=== PATIENT | female | born 1950 | race Caucasian/White ===

== ENCOUNTER 2017-02-20 15:22 | Emergency (ER) | payer MEDICARE, OTHER ==
[2017-02-20 15:34] VITALS: BP 167/88
[2017-02-20] MEDS ORDERED: Ondansetron 4 MG/2 ML SDV IVPUSH ONE (16:07)
[2017-02-20] MEDS ORDERED: Sodium Chloride 0.9% 10 ML Syringe FLUSH PRN (16:07)
[2017-02-20] MEDS ORDERED: Sodium Chloride 0.9% 1,000 ML IV ONE (16:07)
[2017-02-20] MEDS ORDERED: Ketorolac 30 MG/ML SDV IVPUSH ONE (16:07)
[2017-02-20] MEDS ORDERED: diphenhydrAMINE 50 MG/ML SDV IVPUSH ONE (17:48)
[2017-02-20] MEDS ORDERED: Morphine 2 MG/ML Syringe IVPUSH ONE (18:48)
--- NOTE | 2017-02-20 19:20 | EDM.PDOC ---
ED HPI GENERAL MEDICAL PROBLEM - General Chief Complaint: Gastrointestinal Problem Stated Complaint: FLU LIKE SYMPTOMS Time Seen by Provider: 02/20/17 16:00 Source of Information: Reports: Patient History Limitations: Reports: No Limitations - History of Present Illness INITIAL COMMENTS - FREE TEXT/NARRATIVE: 66 year old female presents foe evaluation and treatment of flu like symptoms . Patient reports symptoms started last night. Reports she first started vomiting last night. She has vomited 3 times today. Reports feeling dehydrated from the vomiting. Also reports symptoms of chills, nausea, bilateral ear pain, headaches , decreased appetite and bodyaches. Denies any fevers, cough, sore throat, abdominal pain or diarrhea. Patient has a history of RA and polymyositis. Receives IV Ig therapy for these. Last treatment was last . Denies any recent travel. Denies any ill contacts. Has not yet had a flu shot this year.s Duration: Day(s): (1) Headache Pain Score (Numeric/FACES): 10 - Related Data Allergies Allergy/AdvReac Type Severity Reaction Status Date / Time cephalexin monohydrate Allergy Hives Verified 02/20/17 15:31 [From Keflex] rimantadine HCl Allergy Rash Verified 02/20/17 15:31 [From Flumadine] acetaminophen [From [place]] AdvReac Nervousness Verified 02/20/17 15:31 codeine AdvReac Nervousness Verified 02/20/17 15:31 hydrocodone bitartrate AdvReac Nervousness Verified 02/20/17 15:31 [From [place]] hydromorphone HCl AdvReac Nervousness Verified 02/20/17 15:31 [From Dilaudid] meperidine HCl [From Demerol] AdvReac Nervousness Verified 02/20/17 15:31 oxycodone AdvReac Nervousness Verified 02/20/17 15:31 propoxyphene HCl AdvReac Nervousness Verified 02/20/17 15:31 [From [place]] sulfamethoxazole AdvReac Nausea and Verified 02/20/17 15:31 [From Bactrim] Vomiting tramadol HCl [From Ultram] AdvReac Nervousness Verified 02/20/17 15:31 trimethoprim [From Bactrim] AdvReac Nausea and Verified 02/20/17 15:31 Vomiting Home Meds: Home Meds Ascorbic Acid [C-1000] 1,000 mg PO DAILY 08/01/14 [History] Cholecalciferol (Vitamin D3) [Vitamin D3] 2,000 unit PO DAILY 08/01/14 [History] Escitalopram [Lexapro] 20 mg PO DAILY 08/01/14 [History] Exemestane 25 mg PO DAILY 08/01/14 [History] Levothyroxine 25 mcg PO DAILY 08/01/14 [History] Losartan [Cozaar] 0.5 tab PO DAILY 08/01/14 [History] Multivitamin [Multi-Vitamin Daily] 1 tab PO DAILY 08/01/14 [History] Pantoprazole [ProTONIX] 40 mg PO DAILY 08/01/14 [History] SUMAtriptan Succinate [Imitrex] 50 mg PO ASDIRECTED PRN 08/01/14 [History] Folic Acid 20 mg PO DAILY 08/23/15 [History] Morphine 15 mg PO Q6H PRN #20 tablet 08/23/15 [Rx] Past Medical History Cardiovascular History: Reports: High Cholesterol, Hypertension, Other (See Below) Other Cardiovascular History: PVCs Gastrointestinal History: Reports: Other (See Below) Other Gastrointestinal History: stomach adhesions 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) Other OB/BYN History: breast cancer 2011 Musculoskeletal History: Reports: Other (See Below) Other Musculoskeletal History: right leg muscle biopsy, right toe plate, right ulnar nerve, rorator cuff, neck disectomy, 07/18/2015 lumbarsacral disk fusion Social & Family History - Tobacco Use Smoking Status *Q: Never Smoker Second Hand Smoke Exposure: No - Alcohol Use Days Per Week of Alcohol Use: 0 Number of Drinks Per Day: 0 Total Drinks Per Week: 0 - Recreational Drug Use Recreational Drug Use: No Drug Use in Last 12 Months: No ED ROS GENERAL - Review of Systems Review Of Systems: See Below Constitutional: Reports: Chills, Decreased Appetite, Other (bodyaches). Denies : Fever HEENT: Reports: Ear Pain (bilateral). Denies: Throat Pain Respiratory: Denies: Cough, Sputum GI/Abdominal: Reports: Nausea, Vomiting (x3 today). Denies: Abdominal Pain, Diarrhea : Reports: No Symptoms. Denies: Dysuria Neurological: Reports: Headache ED EXAM, GENERAL - Physical Exam Exam: See Below Exam Limited By: No Limitations General Appearance: Alert, WD/WN, No Apparent Distress Eye Exam: Bilateral Eye: Normal Inspection, PERRL Ears: Normal External Exam, Normal Canal, Hearing Grossly Normal, Normal TMs Nose: Normal Inspection Throat/Mouth: Normal Inspection, Normal Lips, Normal Voice, No Airway Compromise Neck: Normal Inspection, Full Range of Motion Respiratory/Chest: No Respiratory Distress, Lungs Clear, Normal Breath Sounds Cardiovascular: Normal Peripheral Pulses, Regular Rate, Rhythm, No Murmur GI/Abdominal: Soft, Non-Tender Neurological: Alert, Oriented, Normal Cognition Psychiatric: Normal Affect, Normal Mood Skin Exam: Warm, Dry, Normal Color Course - Vital Signs Last Recorded V/S: Last Vital Signs Temp 35.7 C 02/20/17 15:31 Pulse 80 02/20/17 15:31 Resp 17 02/20/17 15:31 BP 167/88 H 02/20/17 15:31 Pulse Ox 98 02/20/17 15:31 - Orders/Labs/Meds Labs: Laboratory Tests 02/20/17 02/20/17 02/20/17 Range/Units 16:30 16:30 16:30 WBC 4.97 (3.98-10.04) K/mm3 RBC 3.82 L (3.98-5.22) M/mm3 Hgb 14.2 (11.2-15.7) gm/L Hct 40.8 (34.1-44.9) % MCV 106.8 H (79.4-94.8) fl MCH 37.2 H (25.6-32.2) pg MCHC 34.8 (32.2-35.5) g/dl RDW Std Deviation 57.7 H (36.4-46.3) fL Plt Count 236 (182-369) K/mm3 MPV 11.0 (9.4-12.3) fl Neutrophils % (Manual) 86 H (40-60) % Band Neutrophils % 0 (0-10) % Lymphocytes % (Manual) 11 L (20-40) % Atypical Lymphs % 0 % Monocytes % (Manual) 2 (2-10) % Eosinophils % (Manual) 0 L (0.7-5.8) % Basophils % (Manual) 1 (0.1-1.2) Platelet Estimate Adequate Anisocytosis 2+ moderate Macrocytosis 2+ moderate Ovalocytes 1+ slight RBC Morph Comment Not Reportable Sodium 139 (136-145) mEq/L Potassium 3.3 L (3.5-5.1) mEq/L Chloride 100 (98-107) mEq/L Carbon Dioxide 28 (21-32) mEq/L Anion Gap 14.3 (5-15) BUN 12 (7-18) mg/dL Creatinine 1.0 (0.55-1.02) mg/dL Est Cr Clr Drug Dosing 42.32 mL/min Estimated GFR (MDRD) 56 (>60) mL/min BUN/Creatinine Ratio 12.0 L (14-18) Glucose 94 (80-115) mg/dL Calcium 9.5 (8.5-10.1) mg/dL Total Bilirubin 2.1 H (0.2-1.0) mg/dL AST 61 H (15-37) U/L ALT 49 (14-59) U/L Alkaline Phosphatase 65 (46-116) U/L C-Reactive Protein 0.5 (<1.0) mg/dL Total Protein 8.2 (6.4-8.2) g/dl Albumin 3.4 (3.4-5.0) g/dl Globulin 4.8 gm/dL Albumin/Globulin Ratio 0.7 L (1-2) Lipase 107 (73-393) U/L Meds: Medications Discontinued Medications Generic Name Dose Route Start Last Admin Trade Name Freq PRN Reason Stop Dose Admin Diphenhydramine HCl 25 mg 02/20/17 17:48 02/20/17 17:53 Benadryl IVPUSH 02/20/17 17:49 25 mg ONETIME ONE Administration Sodium Chloride 1,000 mls @ 999 mls/hr 02/20/17 16:07 02/20/17 16:24 Normal Saline IV 02/20/17 17:07 999 mls/hr ONETIME ONE Administration Ketorolac Tromethamine 30 mg 02/20/17 16:07 02/20/17 16:24 Toradol IVPUSH 02/20/17 16:08 30 mg ONETIME ONE Administration Morphine Sulfate 2 mg 02/20/17 18:48 02/20/17 18:58 Morphine IVPUSH 02/20/17 18:49 2 mg ONETIME ONE Administration Ondansetron HCl 4 mg 02/20/17 16:07 02/20/17 16:24 Zofran IVPUSH 02/20/17 16:08 4 mg ONETIME ONE Administration Sodium Chloride 10 ml 02/20/17 16:07 02/20/17 16:24 Saline Flush FLUSH 10 ml ASDIRECTED PRN Administration Keep Vein Open - Re-Assessments/Exams Free Text/Narrative Re-Assessment/Exam: 02/20/17 16:10 Plan is to give fluids, zofran and toradol for dehydration, nausea and headache. Will obtain labs. 02/20/17 17:50 Awaiting labs. Reports no change in migraine. Will give benadryl for additional relief. 02/20/17 18:45 Labs returned. Influenza is negative. WBC and CRP are within normal limits. Bilirubin is elevated. I will have her follow-up for further evaluation of this. Patient reports no change in migraine. She is requesting morphine as she reports when her migraines are this bad that is the only thing that works for her. 2mg IV morphine ordered. 02/20/17 19:20 The patient is currently sleeping at this point. I feel she has a viral infection which precipitated a migraine headache for her. I will allow her to rest a short while longer and we will reassess her. 02/20/17 19:52 Migraine has significantly improved. She feels comfortable going home. Discharge instructions as documented. Departure - Departure Time of Disposition: 19:52 Disposition: Home, Self-Care 01 Condition: Good Clinical Impression: Migraine - Discharge Information Instructions: Migraine Headache Referrals: Kelly Stapleton PA-C [Primary Care Provider] - Forms: ED Department Discharge Additional Instructions: Go home and rest in a dark quiet room. make sure you are drinking plenty of fluids. Follow up with your primary care provider for recheck of your symptoms this week. Please return to the ER if your symptoms change or worsen.
== END 2017-02-20 20:02 | disposition home or self-care (01) ==
LOC: JD.ED 15:22
DX: G43.909 Migraine, unspecified, not intractable, without status migrainosus (principal); I10 Essential (primary) hypertension; Z88.1 Allergy status to other antibiotic agents; Z88.5 Allergy status to narcotic agent; Z88.8 Allergy status to other drugs, medicaments and biological substances; Z88.2 Allergy status to sulfonamides; Z79.899 Other long term (current) drug therapy; E78.00 Pure hypercholesterolemia, unspecified
CPT/HCPCS: 36415; 80053; 83690; 85025; 86140; 87804; 96361; 96374; 96375; 99284; J1200; J1885; J2270; J2405; J7040; J7050; 99283

== ENCOUNTER 2020-09-29 17:55 | Emergency (ER) | payer MEDICARE, OTHER ==
[2020-09-29 18:52] VITALS: BP 123/71; PULSE 65
[2020-09-29] MEDS ORDERED: Nitrofurantoin Monohydrate/Macrocrystalline 100 MG Cap PO ONE (19:14)
--- NOTE | 2020-09-29 19:17 | EDM.PDOC ---
ED HPI GENERAL MEDICAL PROBLEM - General Chief Complaint: Genitourinary Problem Stated Complaint: BURNING SENSATION DURING URINATION Time Seen by Provider: 09/29/20 18:48 Source of Information: Reports: Patient, RN Notes Reviewed History Limitations: Reports: No Limitations - History of Present Illness INITIAL COMMENTS - FREE TEXT/NARRATIVE: Patient is a 70-year-old female presenting to the emergency department with complaints of suprapubic pain burning with urination, and hematuria. The symptoms began last evening. She denies any fever, chills, nausea, vomiting, or back pain. She has had UTIs in the past, however it has been quite some time. Bladder Pain Score (Numeric/FACES): 8 - Related Data Allergies Allergy/AdvReac Type Severity Reaction Status Date / Time cephalexin monohydrate Allergy Intermediate Hives Verified 10/01/20 12:07 [From Keflex] rimantadine HCl Allergy Intermediate Rash Verified 10/01/20 12:07 [From Flumadine] acetaminophen [From [place]] AdvReac Mild Nervousness Verified 10/01/20 12:07 codeine AdvReac Mild Nervousness Verified 10/01/20 12:07 hydrocodone bitartrate AdvReac Mild Nervousness Verified 10/01/20 12:07 [From [place]] hydromorphone HCl AdvReac Mild Nervousness Verified 10/01/20 12:07 [From Dilaudid] meperidine HCl [From Demerol] AdvReac Mild Nervousness Verified 10/01/20 12:07 oxycodone AdvReac Mild Nervousness Verified 10/01/20 12:07 propoxyphene HCl AdvReac Mild Nervousness Verified 10/01/20 12:07 [From [place]] sulfamethoxazole AdvReac Mild Nausea and Verified 10/01/20 12:07 [From Bactrim] Vomiting tramadol HCl [From Ultram] AdvReac Nervousness Verified 02/20/17 15:31 trimethoprim [From Bactrim] AdvReac Nausea and Verified 02/20/17 15:31 Vomiting Home Meds: Home Meds Ascorbic Acid [C-1000] 1,000 mg PO DAILY 08/01/14 [History] Cholecalciferol (Vitamin D3) [Vitamin D3] 5,000 unit PO DAILY 08/01/14 [History] Escitalopram [Lexapro] 20 mg PO DAILY 08/01/14 [History] Levothyroxine 25 mcg PO DAILY 08/01/14 [History] Losartan [Cozaar] 0.5 tab PO DAILY 08/01/14 [History] Multivitamin [Multi-Vitamin Daily] 1 tab PO DAILY 08/01/14 [History] SUMAtriptan succinate [Imitrex] 50 mg PO ASDIRECTED PRN 08/01/14 [History] Nitrofurantoin Monohyd/M-Cryst [Macrobid 100 mg Capsule] 100 mg PO BID 5 Days #10 capsule 09/29/20 [Rx] Past Medical History HEENT History: Reports: Impaired Vision Other HEENT History: wears corrective lenses Cardiovascular History: Reports: High Cholesterol, Hypertension, Other (See Below) Other Cardiovascular History: PVCs Gastrointestinal History: Reports: Other (See Below) Other Gastrointestinal History: stomach adhesions 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 Denies: Fever, Chills HEENT: Reports: No Symptoms Respiratory: Reports: No Symptoms Cardiovascular: Reports: No Symptoms Endocrine: Reports: No Symptoms GI/Abdominal: Reports: Abdominal Pain (suprapubic). Denies: Nausea, Vomiting : Reports: Dysuria, Hematuria, Urgency. Denies: Flank Pain Musculoskeletal: Reports: No Symptoms Skin: Reports: No Symptoms Neurological: Reports: No Symptoms Psychiatric: Reports: No Symptoms Hematologic/Lymphatic: Reports: No Symptoms Immunologic: Reports: No Symptoms ED EXAM, RENAL/ - Physical Exam Exam: See Below Exam Limited By: No Limitations General Appearance: Alert, WD/WN, No Apparent Distress Respiratory/Chest: No Respiratory Distress, Lungs Clear, Normal Breath Sounds, No Accessory Muscle Use, Chest Non-Tender Cardiovascular: Normal Peripheral Pulses, Regular Rate, Rhythm, No Edema, No Gallop, No JVD, No Murmur, No Rub GI/Abdominal: Normal Bowel Sounds, Soft, No Organomegaly, No Distention, No Abnormal Bruit, No Mass, Tender (mild suprapubic) Back Exam: Normal Inspection, Full Range of Motion. No: CVA Tenderness (L), CVA Tenderness (R) Neurological: Alert, Oriented, CN II-XII Intact, Normal Cognition, Normal Gait, Normal Reflexes, No Motor/Sensory Deficits Psychiatric: Normal Affect, Normal Mood Skin Exam: Warm, Dry, Intact, Normal Color, No Rash Course - Vital Signs Last Recorded V/S: Last Vital Signs Temp 98.0 F 09/29/20 18:50 Pulse 65 09/29/20 18:50 Resp 20 09/29/20 18:50 BP 123/71 09/29/20 18:50 Pulse Ox 96 09/29/20 18:50 - Orders/Labs/Meds Labs: Laboratory Tests 09/29/20 Range/Units 19:00 Urine Color Yellow (Yellow) Urine Appearance Clear (Clear) Urine pH 6.0 (5.0-8.0) Ur Specific [place] 1.020 (1.005-1.030) Urine Protein 1+ H (Negative) Urine Glucose (UA) Negative (Negative) Urine Ketones Trace H (Negative) Urine Occult Blood 3+ H (Negative) Urine Nitrite Negative (Negative) Urine Bilirubin Negative (Negative) Urine Urobilinogen 0.2 (0.2-1.0) Ur Leukocyte Esterase 1+ H (Negative) Urine RBC 40-50 H (0-5) /hpf Urine WBC 10-20 H (0-5) /hpf Ur Squamous Epith Cells 0-5 (0-5) /hpf Urine Bacteria Moderate H (FEW) /hpf Urine Mucus Few (FEW) /hpf Meds: Medications Discontinued Medications Generic Name Dose Route Start Last Admin Trade Name Freq PRN Reason Stop Dose Admin Nitrofurantoin Macrocrystals 100 mg 09/29/20 19:14 09/29/20 19:22 Nitrofurantoin Monohydrate/Macrocrystalline 100 Mg Cap PO 09/29/20 19:15 100 mg ONETIME ONE Administration - Re-Assessments/Exams Free Text/Narrative Re-Assessment/Exam: Patient is a 70-year-old female presenting to the emergency department with complaints of suprapubic pain, hematuria, and burning with urination. Symptoms began last evening. She has no fever, chills, nausea, vomiting, or back pain. Exam is unremarkable. She has no CVA tenderness. I have ordered urinalysis. 09/29/20 19:33 Urinalysis shows 1+ protein, trace ketones, 3+ occult blood, 1+ leukocyte esterase, 40-50 RBCs, 10-20 WBCs with moderate bacteria. I will start patient on Macrobid for treatment of urinary tract infection. First dose to be given tonight. Discharge instructions as documented. Departure - Departure Time of Disposition: 19:37 Disposition: Home, Self-Care 01 Condition: Good Clinical Impression: UTI, Urinary tract infectious disease - Discharge Information *PRESCRIPTION DRUG MONITORING PROGRAM REVIEWED*: No *COPY OF PRESCRIPTION DRUG MONITORING REPORT IN PATIENT BRUCE: No Prescriptions: Nitrofurantoin Monohyd/M-Cryst [Macrobid 100 mg Capsule] 100 mg PO BID 5 Days #10 capsule Instructions: Urinary Tract Infection, Adult, [id number] Referrals: Kelly Stapleton PA-C [Primary Care Provider] - Forms: ED Department Discharge Additional Instructions: You were seen in the emergency department today for burning with urination, blood in urine, and lower abdominal discomfort. Urinalysis does show they have a urinary tract infection. You have been started on Macrobid for treatment of this. Take this medication as prescribed. You may use [id number] Azo urinary relief to help treat the discomfort. Ensure that you are taking an adequate amount of fluid. Symptoms should begin to resolve over the next few days. You should experience any new or worsening symptoms, please not hesitate to return to the emergency department or follow-up in the clinic. Sepsis Event Note (ED) - Evaluation Sepsis Screening Result: No Definite Risk
== END 2020-09-29 19:51 | disposition home or self-care (01) ==
LOC: JD.ED 17:55
DX: N39.0 Urinary tract infection, site not specified (principal); I10 Essential (primary) hypertension; Z79.899 Other long term (current) drug therapy; Z88.1 Allergy status to other antibiotic agents; Z88.6 Allergy status to analgesic agent; Z88.5 Allergy status to narcotic agent; Z88.2 Allergy status to sulfonamides
CPT/HCPCS: 81001; 87086; 87088; 87186; 99283; A9270

== ENCOUNTER 2020-12-31 17:17 | Emergency (ER) | payer MEDICARE, OTHER ==
[2020-12-31] MEDS ORDERED: Phenylephrine 0.5% Nasal Spray 15 ML Bot NASBOTH ONE (17:30)
[2020-12-31 17:39] VITALS: BP 124/53; PULSE 79
--- NOTE | 2020-12-31 17:42 | EDM.PDOC ---
ED HPI GENERAL MEDICAL PROBLEM - General Chief Complaint: ENT Problem Stated Complaint: NOSE BLEED Time Seen by Provider: 12/31/20 17:30 Source of Information: Reports: Patient, RN Notes Reviewed History Limitations: Reports: No Limitations - History of Present Illness INITIAL COMMENTS - FREE TEXT/NARRATIVE: Patient is a 70-year-old female who presents to the ER for evaluation of a right nosebleed. Patient notes that she has had history of 3 nosebleeds this week, which is a new variant for her. She states that this nosebleed today however started roughly 30 minutes ago, and seems to be coming out of the right nostril. She notes that the other nosebleeds this week also have been coming out of her right nostril. States that today she is having issue with a migraine headache that is associated with a nosebleed. Patient denies being on any sort of blood thinners. Patient denies any other sick-like symptoms, fever/chills, cough/shortness of breath, nausea/vomiting/diarrhea. Primary care provider is Jennifer Stapleton from [facility]. Headache Pain Score (Numeric/FACES): 8 - Related Data Allergies Allergy/AdvReac Type Severity Reaction Status Date / Time cephalexin monohydrate Allergy Intermediate Hives Verified 10/01/20 12:07 [From Keflex] rimantadine HCl Allergy Intermediate Rash Verified 10/01/20 12:07 [From Flumadine] acetaminophen [From [place]] AdvReac Mild Nervousness Verified 10/01/20 12:07 codeine AdvReac Mild Nervousness Verified 10/01/20 12:07 hydrocodone bitartrate AdvReac Mild Nervousness Verified 10/01/20 12:07 [From [place]] hydromorphone HCl AdvReac Mild Nervousness Verified 10/01/20 12:07 [From Dilaudid] meperidine HCl [From Demerol] AdvReac Mild Nervousness Verified 10/01/20 12:07 oxycodone AdvReac Mild Nervousness Verified 10/01/20 12:07 propoxyphene HCl AdvReac Mild Nervousness Verified 10/01/20 12:07 [From Darvon] sulfamethoxazole AdvReac Mild Nausea and Verified 10/01/20 12:07 [From Bactrim] Vomiting tramadol HCl [From Ultram] AdvReac Nervousness Verified 02/20/17 15:31 trimethoprim [From Bactrim] AdvReac Nausea and Verified 02/20/17 15:31 Vomiting Home Meds: Home Meds Ascorbic Acid [C-1000] 1,000 mg PO DAILY 08/01/14 [History] Cholecalciferol (Vitamin D3) [Vitamin D3] 5,000 unit PO DAILY 08/01/14 [History] Escitalopram [Lexapro] 20 mg PO DAILY 08/01/14 [History] Levothyroxine 25 mcg PO DAILY 08/01/14 [History] Losartan [Cozaar] 0.5 tab PO DAILY 08/01/14 [History] Multivitamin [Multi-Vitamin Daily] 1 tab PO DAILY 08/01/14 [History] SUMAtriptan succinate [Imitrex] 50 mg PO ASDIRECTED PRN 08/01/14 [History] Amitriptyline HCl 10 mg PO BEDTIME 12/31/20 [History] C-Naltrexone 4.5 mg PO BEDTIME 12/31/20 [History] [employer] 2 tab PO DAILY 12/31/20 [History] Cetirizine HCl [Zyrtec] 10 mg PO DAILY 12/31/20 [History] Famotidine [Pepcid] 20 mg PO BEDTIME 12/31/20 [History] Fluticasone Propionate [Flonase Allergy Relief] 1 spray INH BID 12/31/20 [History] Herbal Portillo 2 tab PO DAILY 12/31/20 [History] Magnesium Glycinate [Mag Glycinate] 50 mg PO DAILY 12/31/20 [History] Montelukast [Singulair] 10 mg PO BEDTIME 12/31/20 [History] Goldvein-3/DHA/Epa/Fish Oil [EPA-DHA 720 Softgel] 1,440 mg PO DAILY 12/31/20 [History] Omeprazole 20 mg PO BID 12/31/20 [History] Psyllium Husk [Metamucil] 2 cap PO ASDIRECTED 12/31/20 [History] Saccharomyces Boulardii [Probiotic] 280 mg PO DAILY 12/31/20 [History] Spironolactone [Aldactone] 25 mg PO DAILY 12/31/20 [History] azaTHIOprine [Imuran] 50 mg PO BID 12/31/20 [History] cycloSPORINE [Restasis Multidose] 1 drop TOP BID 12/31/20 [History] Past Medical History HEENT History: Reports: Impaired Vision Other HEENT History: wears corrective lenses Cardiovascular History: Reports: High Cholesterol, Hypertension, Other (See Below) Other Cardiovascular History: PVCs Gastrointestinal History: Reports: Other (See Below) Other Gastrointestinal History: stomach adhesions 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 ED EXAM, ENT - Physical Exam Exam: See Below Exam Limited By: No Limitations General Appearance: Alert, WD/WN, No Apparent Distress Nose: Normal Inspection, Normal Mucousa, Dried Blood (around the right nare, the patient also did cough/spit up a large clot. states that is feels like it is running down the back of her throat.). No: Active Bleeding Respiratory/Chest: No Respiratory Distress, Lungs Clear, Normal Breath Sounds, No Accessory Muscle Use, Chest Non-Tender Cardiovascular: Normal Peripheral Pulses, Regular Rate, Rhythm, No Edema Extremities: Normal Inspection, Normal Capillary Refill Neurological: Alert, Oriented, Normal Cognition, No Motor/Sensory Deficits Psychiatric: Normal Affect, Normal Mood Skin: Warm, Dry, Intact, Normal Color, No Rash ED ENT PROCEDURES - Epistaxis Procedure Indication: Epistaxis Recent anticoagulants/antiplatlets: No Uncontrolled HTN: No Recent septal/nasal surgery: No Site of bleeding: Right Nare Clearing of clots: Patient Blew Nose Topical Meds: Phenylephrine, Topical Cocaine Ice pack to area: No Anterior Packing: Plain Gauze Strip (this was soaked in the phenylephrine and topical cocaine and the R nare was packed for initial management) Course - Vital Signs Last Recorded V/S: Last Vital Signs Temp 96.9 F 12/31/20 17:38 Pulse 79 12/31/20 17:38 Resp 20 12/31/20 17:38 BP 124/53 L 12/31/20 17:38 Pulse Ox 97 12/31/20 17:38 - Orders/Labs/Meds Meds: Medications Discontinued Medications Generic Name Dose Route Start Last Admin Trade Name Kimmie PRN Reason Stop Dose Admin Cocaine HCl 1 ml 12/31/20 17:30 12/31/20 17:48 Cocaine 4 Ml Bottle TOP 12/31/20 17:31 1 ml ONETIME ONE Administration Phenylephrine HCl 1 ml 12/31/20 17:30 12/31/20 17:48 Phenylephrine 0.5% Nasal [place] 15 Ml Bot NASBOTH 12/31/20 17:31 1 ml ONETIME ONE Administration - Re-Assessments/Exams Free Text/Narrative Re-Assessment/Exam: 12/31/20 17:40 Patient presents to the ER for evaluation of a nosebleed, we will try some topical cocaine and Quentin-Synephrine at this time for initial management. Pressure was applied at time of triage, and no active bleeding was appreciated by myself initially. Patient still feels like the blood is traveling down the back of her throat however. 12/31/20 19:20 We were able to achieve hemostasis with topical cocaine and phenylephrine for the patient's nosebleed. We will go ahead and discharge her home with general recommendations. Departure - Departure Time of Disposition: 19:20 Disposition: Home, Self-Care 01 Condition: Good Clinical Impression: Epistaxis - Discharge Information *PRESCRIPTION DRUG MONITORING PROGRAM REVIEWED*: No *COPY OF PRESCRIPTION DRUG MONITORING REPORT IN PATIENT BRUCE: No Instructions: Nosebleed, [id number] Referrals: Kelly Stapleton PA-C [Primary Care Provider] - Forms: ED Department Discharge Additional Instructions: You were evaluated in the ER today for your nosebleed. This was successfully stopped with topical applications into the nostril that was bleeding. Going forward from here, I did recommend that you use a saline nasal gel like AYR, into the nare gently on a Q-tip for further moisturization of the airways. Recommend you follow-up with your regular care provider, for ongoing healthcare management. Do not hesitate to return to the ER at any time if symptoms change or worsen. Sepsis Event Note (ED) - Focused Exam Vital Signs: Vital Signs Temp Pulse Resp BP Pulse Ox 12/31/20 17:38 96.9 F 79 20 124/53 L 97
== END 2020-12-31 19:32 | disposition home or self-care (01) ==
LOC: JD.ED 17:17
DX: R04.0 Epistaxis (principal); I10 Essential (primary) hypertension; Z88.1 Allergy status to other antibiotic agents; Z79.899 Other long term (current) drug therapy; Z88.8 Allergy status to other drugs, medicaments and biological substances; Z88.6 Allergy status to analgesic agent; Z88.5 Allergy status to narcotic agent; Z88.2 Allergy status to sulfonamides
CPT/HCPCS: 99283; A9270; C9046; 30901; 99282

== ENCOUNTER 2022-05-14 00:29 | Emergency (ER) | payer MEDICARE, OTHER ==
[2022-05-14 00:45] VITALS: BP 176/91; PULSE 86
== END 2022-05-14 06:00 | disposition home or self-care (01) ==
LOC: JD.ED 00:29
DX: R04.0 Epistaxis (principal); I10 Essential (primary) hypertension; K21.9 Gastro-esophageal reflux disease without esophagitis; Z88.1 Allergy status to other antibiotic agents; Z88.5 Allergy status to narcotic agent; Z88.8 Allergy status to other drugs, medicaments and biological substances; Z79.899 Other long term (current) drug therapy
CPT/HCPCS: 99283

== ENCOUNTER 2022-05-14 15:54 | Emergency (ER) | payer MEDICARE, OTHER ==
[2022-05-14 17:00] VITALS: BP 156/86; PULSE 81
== END 2022-05-14 20:14 | disposition home or self-care (01) ==
LOC: JD.ED 15:54
DX: R04.0 Epistaxis (principal); E78.00 Pure hypercholesterolemia, unspecified; I10 Essential (primary) hypertension; Z88.1 Allergy status to other antibiotic agents; Z88.5 Allergy status to narcotic agent; Z79.899 Other long term (current) drug therapy
CPT/HCPCS: 30903; 36415; 85014; 85018; 99283-25

== ENCOUNTER 2022-05-16 14:36 | Emergency (ER) | payer MEDICARE, OTHER ==
[2022-05-16] MEDS ORDERED: Sulfamethoxazole/Trimethoprim 800-160 MG Tab PO STA (16:35)
[2022-05-16] MEDS ORDERED: Ondansetron 4 MG Tab.DIS PO ONE (16:45)
[2022-05-16] MEDS ORDERED: Gabapentin 300 MG Cap PO ONE (16:47)
[2022-05-16 18:12] VITALS: BP 149/70; PULSE 87
== END 2022-05-16 18:12 | disposition home or self-care (01) ==
LOC: JD.ED 14:36
DX: R04.0 Epistaxis (principal); I10 Essential (primary) hypertension; Z88.1 Allergy status to other antibiotic agents; Z88.6 Allergy status to analgesic agent; Z88.5 Allergy status to narcotic agent; Z88.2 Allergy status to sulfonamides; Z79.899 Other long term (current) drug therapy; Z90.49 Acquired absence of other specified parts of digestive tract
CPT/HCPCS: 30905; 99283; A9270

== ENCOUNTER 2022-11-11 19:31 | Emergency (ER) | payer MEDICARE ==
[2022-11-11] MEDS ORDERED: Hyoscyamine 0.125 MG Tab.SL SL ONE ×2 (19:48→20:29)
[2022-11-11] MEDS ORDERED: Metoclopramide 10 MG/2 ML SDV IVPUSH ONE (19:49)
[2022-11-11] MEDS ORDERED: HYDROmorphone 0.5 MG/0.5 ML Syringe IVPUSH ONE (19:50)
[2022-11-11] MEDS ORDERED: Dextrose 5%-0.9% NaCl 1,000 ML IV SCH (20:00)
[2022-11-11 20:10] LABS: BASOPHILS ABSOLUTE AUTO 0.02 K/mm3 (0.01-0.08); BASOPHILS PERCENT AUTO 0.6 % (0.1-1.2); EOSINOPHILS ABSOLUTE AUTO 0.03 K/mm3 (0.04-0.36); EOSINOPHILS PERCENT AUTO 0.9 (0.7-5.8); HEMATOCRIT 33.8 % (34.1-44.9); IMMATURE GRAN ABSOLUTE AUTO 0.01 K/mm3 (0.00-0.10); IMMATURE GRAN PERCENT AUTO 0.3 % (<=1.0); LYMPHOCYTES ABSOLUTE AUTO 0.52 K/mm3 (1.18-3.74); LYMPHOCYTES PERCENT AUTO 16.1 % (19.3-51.7); MEAN CORPUSCULAR HEMOGLOBIN 39.2 pg (25.6-32.2); MEAN CORPUSCULAR HGB CONC 35.5 g/dl (32.2-35.5); MEAN CORPUSCULAR VOLUME 110.5 fl (79.4-94.8); MEAN PLATELET VOLUME 11.2 fl (9.4-12.3); MONOCYTES ABSOLUTE AUTO 0.26 K/mm3 (0.24-0.36); NEUTROPHILS ABSOLUTE AUTO 2.39 K/mm3 (1.56-6.13); NEUTROPHILS PERCENT AUTO 74.1 % (34.0-71.1); PLATELET COUNT,PLT 85 K/mm3 (182-369); RED BLOOD CELL COUNT 3.06 M/mm3 (3.98-5.22); WHITE BLOOD CELL COUNT,WBC 3.23 K/mm3 (3.98-10.04)
[2022-11-11 20:29] LABS: INR 0.97; PROTHROMBIN TIME 10.4 SECONDS (9.7-12.0)
[2022-11-11] MEDS ORDERED: fentaNYL 100 MCG/2 ML SDV IVPUSH ONE (20:29)
[2022-11-11 20:30] LABS: PTT,PARTIAL THROMBOPLSTIN TIME 23.9 SECONDS (21.7-31.4)
[2022-11-11 20:37] LABS: SLIDE REVIEW ABNORMAL SMEAR
[2022-11-11 20:46] LABS: A/G RATIO 0.8 (1-2); ALANINE AMINOTRANSFERASE,ALT 43 U/L (14-59); ALBUMIN 2.9 g/dl (3.4-5.0); ALKALINE PHOSPHATASE 74 U/L (46-116); ANION GAP 11.1 (5-15); ASPARTATE AMNIOTRANSFERASE,AST 43 U/L (15-37); BILIRUBIN TOTAL 0.9 mg/dL (0.2-1.0); BLOOD UREA NITROGEN,BUN 12 mg/dL (7-18); CALCIUM 8.4 mg/dL (8.5-10.1); CARBON DIOXIDE,CO2 28 mEq/L (21-32); CHLORIDE,CL 107 mEq/L (98-107); CKMB 18.7 ng/ml (0-3.6); CREATININE 0.8 mg/dL (0.55-1.02); EST CRCL DRUG DOSING (CG) 51.01 mL/min; ESTIMATED GFR 79 mL/min (>60); GAMMA GLUTAMYL TRANSFERASE,GGT 48 U/L (5-55); GLUCOSE RANDOM 108 mg/dL (70-99); MAGNESIUM 1.7 mg/dL (1.8-2.4); POTASSIUM,K 3.1 mEq/L (3.5-5.1); PROTEIN TOTAL,TP 6.7 g/dl (6.4-8.2); SODIUM,NA 143 mEq/L (136-145); TROPONIN I HIGH SENSITIVITY 41 pg/mL (<=51)
[2022-11-11 21:00] LABS: C-REACTIVE PROTEIN < 0.2 mg/dL (<1.0)
[2022-11-11 21:04] LABS: CKMB 18.7 ng/ml (0-3.6)
[2022-11-11 22:12] LABS: FOLIC ACID 5.1 ng/mL (8.6-58.9)
[2022-11-11 22:39] VITALS: BP 136/67; PULSE 68
== END 2022-11-11 22:37 | disposition home or self-care (01) ==
LOC: JD.ED 19:31
DX: K80.50 Calculus of bile duct without cholangitis or cholecystitis without obstruction (principal); D75.89 Other specified diseases of blood and blood-forming organs; E78.41 Elevated Lipoprotein(a); I10 Essential (primary) hypertension; K21.9 Gastro-esophageal reflux disease without esophagitis; E03.9 Hypothyroidism, unspecified; Z88.1 Allergy status to other antibiotic agents; Z88.8 Allergy status to other drugs, medicaments and biological substances; Z88.5 Allergy status to narcotic agent; Z88.2 Allergy status to sulfonamides; Z79.899 Other long term (current) drug therapy
CPT/HCPCS: 36415; 71045; 74018; 80053; 82550; 82553; 82607; 82746; 82977; 83690; 83735; 83880; 84443; 84484; 85025; 85610; 85730; 86140; 93005; 96361; 96374; 96375; 99285; A9270; J2765; J3010; J7042; 76705; 76705-26; 93010; 99284

== ENCOUNTER 2022-12-07 13:39 | Emergency (ER) | payer MEDICARE, OTHER ==
[2022-12-07] MEDS ORDERED: Sodium Chloride 0.9% 10 ML Syringe FLUSH PRN ×2 (14:06→14:12)
[2022-12-07] MEDS ORDERED: Ondansetron 4 MG/2 ML SDV IVPUSH ONE (14:06)
[2022-12-07] MEDS ORDERED: HYDROmorphone 0.5 MG/0.5 ML Syringe IVPUSH ONE (14:08)
[2022-12-07] MEDS ORDERED: Iopamidol 612 MG/ML 100 ML Bottle IVPUSH ONE (14:12)
[2022-12-07] MEDS ORDERED: Sodium Chloride 0.9% 1,000 ML IV SCH (14:15)
[2022-12-07 14:59] LABS: BASOPHILS ABSOLUTE AUTO 0.01 K/mm3 (0.01-0.08); BASOPHILS PERCENT AUTO 0.3 % (0.1-1.2); EOSINOPHILS ABSOLUTE AUTO 0.03 K/mm3 (0.04-0.36); EOSINOPHILS PERCENT AUTO 0.8 (0.7-5.8); HEMATOCRIT 36.3 % (34.1-44.9); HEMOGLOBIN 12.9 gm/dl (11.2-15.7); IMMATURE GRAN ABSOLUTE AUTO 0.01 K/mm3 (0.00-0.10); IMMATURE GRAN PERCENT AUTO 0.3 % (<=1.0); LYMPHOCYTES ABSOLUTE AUTO 0.35 K/mm3 (1.18-3.74); LYMPHOCYTES PERCENT AUTO 8.8 % (19.3-51.7); MEAN CORPUSCULAR HEMOGLOBIN 38.3 pg (25.6-32.2); MEAN CORPUSCULAR HGB CONC 35.5 g/dl (32.2-35.5); MEAN CORPUSCULAR VOLUME 107.7 fl (79.4-94.8); MEAN PLATELET VOLUME 10.8 fl (9.4-12.3); MONOCYTES ABSOLUTE AUTO 0.56 K/mm3 (0.24-0.36); NEUTROPHILS ABSOLUTE AUTO 3.03 K/mm3 (1.56-6.13); NEUTROPHILS PERCENT AUTO 75.8 % (34.0-71.1); PLATELET COUNT,PLT 69 K/mm3 (182-369); RED BLOOD CELL COUNT 3.37 M/mm3 (3.98-5.22); WHITE BLOOD CELL COUNT,WBC 3.99 K/mm3 (3.98-10.04)
[2022-12-07 15:20] LABS: A/G RATIO 0.7 (1-2); ALBUMIN 2.9 g/dl (3.4-5.0); ANION GAP 6.7 (5-15); BILIRUBIN TOTAL 0.7 mg/dL (0.2-1.0); BUN/CREATININE RATIO 16.3 (14-18); CALCIUM 8.6 mg/dL (8.5-10.1); CREATININE 0.8 mg/dL (0.55-1.02); EST CRCL DRUG DOSING (CG) 51.01 mL/min; POTASSIUM,K 3.7 mEq/L (3.5-5.1); PROTEIN TOTAL,TP 7.3 g/dl (6.4-8.2)
[2022-12-07] MEDS ORDERED: Morphine 2 MG/ML SYRINGE IVPUSH ONE (15:22)
[2022-12-07 16:47] LABS: SLIDE REVIEW ABNORMAL SMEAR
[2022-12-07] MEDS ORDERED: Ketorolac 30 MG/ML SDV IVPUSH ONE (17:40)
[2022-12-07 18:20] VITALS: BP 158/82; PULSE 58
[2022-12-07] MEDS ORDERED: Promethazine 25 MG/ML SDV IM ONE (18:20)
== END 2022-12-07 18:40 | disposition home or self-care (01) ==
LOC: JD.ED 13:39
DX: R10.84 Generalized abdominal pain (principal); I10 Essential (primary) hypertension; E03.9 Hypothyroidism, unspecified; K21.9 Gastro-esophageal reflux disease without esophagitis; Z88.1 Allergy status to other antibiotic agents; Z88.5 Allergy status to narcotic agent; Z88.8 Allergy status to other drugs, medicaments and biological substances; Z79.899 Other long term (current) drug therapy
CPT/HCPCS: 36415; 74177; 80053; 83690; 85025; 96361; 96372; 96374; 96375; 99284; J1885; J2270; J2405; J2550; J3490; J7030; Q9967

== ENCOUNTER → 2022-12-22 | Day surgery (SDC) | payer MEDICARE, OTHER ==
[~2022-12-22] MED LIST: Lactated Ringers 1,000 ML IV SCH; Lidocaine 1% 4 ML ONE; Propofol 200 MG/20 ML SDV ONE; Sodium Chloride 0.9% 10 ML Syringe FLUSH PRN; Sodium Chloride 0.9% 10 ML Syringe FLUSH SCH; ePHEDrine 50 MG/ML SDV ONE
[2022-12-22 15:20] VITALS: BP 139/70; PULSE 69
== END | disposition home or self-care (01) ==
LOC: JD.SDS 08:14
PROVIDERS: ATTEND Surgery
DX: K21.9 Gastro-esophageal reflux disease without esophagitis (principal); K25.9 Gastric ulcer, unspecified as acute or chronic, without hemorrhage or perforation; K29.70 Gastritis, unspecified, without bleeding; K44.9 Diaphragmatic hernia without obstruction or gangrene; K29.80 Duodenitis without bleeding; F41.9 Anxiety disorder, unspecified; M19.90 Unspecified osteoarthritis, unspecified site; F32.A Depression, unspecified; I10 Essential (primary) hypertension; E03.9 Hypothyroidism, unspecified; G43.909 Migraine, unspecified, not intractable, without status migrainosus; G47.33 Obstructive sleep apnea (adult) (pediatric); M81.0 Age-related osteoporosis without current pathological fracture; Z88.5 Allergy status to narcotic agent; Z88.2 Allergy status to sulfonamides; Z88.8 Allergy status to other drugs, medicaments and biological substances; Z79.890 Hormone replacement therapy; Z79.899 Other long term (current) drug therapy; Z98.890 Other specified postprocedural states; Z86.010 Personal history of colon polyps
CPT/HCPCS: 43235; J2704; J7120; 00731; 99100; J3490

== ENCOUNTER 2023-04-03 08:40 | Emergency (ER) | payer MEDICARE, OTHER ==
[2023-04-03 09:33] LABS: APPEARANCE,URINE SLT CLOUDY (Clear); BILIRUBIN,URINE 1+ (Negative); COLOR,URINE AMBER (Yellow); GLUCOSE,URINE NEGATIVE (Negative); KETONES,URINE TRACE (Negative); LEUKOCYTE ESTERASE,URINE NEGATIVE (Negative); NITRITE,URINE NEGATIVE (Negative); OCCULT BLOOD,URINE 1+ (Negative); PROTEIN,URINE 1+ (Negative)
[2023-04-03] MEDS ORDERED: Ketorolac 30 MG/ML SDV IM ONE (09:42)
[2023-04-03 10:04] LABS: EPITHELIAL CELLS,URINE 0-5 /hpf (0-5); RBC,URINE 0-5 /hpf (0-5); RENAL EPITHELIAL CELLS,URINE 0-5 /hpf (0-5)
[2023-04-03 10:05] LABS: BACTERIA,URINE MODERATE /hpf (FEW); HYALINE CASTS,URINE 0-5 /lpf (0-5); MUCUS,URINE MANY /hpf (FEW); YEAST,URINE MODERATE (NOT SEEN)
[2023-04-03 11:31] VITALS: BP 149/81; PULSE 81
== END 2023-04-03 11:28 | disposition home or self-care (01) ==
LOC: JD.ED 08:40
DX: G89.29 Other chronic pain (principal); M54.50 Low back pain, unspecified; I10 Essential (primary) hypertension; K21.9 Gastro-esophageal reflux disease without esophagitis; E03.9 Hypothyroidism, unspecified; Z88.1 Allergy status to other antibiotic agents; Z88.8 Allergy status to other drugs, medicaments and biological substances; Z88.2 Allergy status to sulfonamides; Z88.6 Allergy status to analgesic agent; Z88.5 Allergy status to narcotic agent; Z79.899 Other long term (current) drug therapy
CPT/HCPCS: 81001; 96372; 99283; J1885

== ENCOUNTER 2023-06-28 10:19 | Emergency (ER) | payer MEDICARE, OTHER ==
[2023-06-28] MEDS: Ketorolac 30 MG/ML SDV IM ONE (13:25)
[2023-06-28 15:13] VITALS: BP 145/82; PULSE 81
== END 2023-06-28 14:40 | disposition home or self-care (01) ==
LOC: JD.ED 10:19
DX: M54.42 Lumbago with sciatica, left side (principal); I10 Essential (primary) hypertension; K21.9 Gastro-esophageal reflux disease without esophagitis; E03.9 Hypothyroidism, unspecified; Z79.899 Other long term (current) drug therapy; Z88.0 Allergy status to penicillin; Z88.1 Allergy status to other antibiotic agents; Z88.2 Allergy status to sulfonamides; Z88.5 Allergy status to narcotic agent; Z88.6 Allergy status to analgesic agent; Z88.8 Allergy status to other drugs, medicaments and biological substances
CPT/HCPCS: 72100; 72220; 96372; 99284; J1885

== ENCOUNTER 2024-03-03 21:10 | Emergency (ER) | payer MEDICARE, OTHER ==
[2024-03-03 21:56] LABS: BASOPHILS PERCENT AUTO 0.7 % (0.0-1.0); EOSINOPHILS ABSOLUTE AUTO 0.2 K/mm3 (0.0-0.4); EOSINOPHILS PERCENT AUTO 5.7 % (0.0-6.0); HEMOGLOBIN 9.4 gm/dl (12.0-16.0); IMMATURE GRAN ABSOLUTE AUTO 0.01 K/mm3 (0.00-0.05); IMMATURE GRAN PERCENT AUTO 0.2 % (0.0-0.4); LYMPHOCYTES ABSOLUTE AUTO 0.8 K/mm3 (1.0-4.8); LYMPHOCYTES PERCENT AUTO 19.9 % (24.0-44.0); MEAN CORPUSCULAR HEMOGLOBIN 23.4 pg (28.0-32.0); MEAN CORPUSCULAR HGB CONC 29.4 g/dl (32.0-36.0); MEAN CORPUSCULAR VOLUME 79.8 fl (83.0-99.0); MEAN PLATELET VOLUME 11.9 fl (9.4-12.3); MONOCYTES ABSOLUTE AUTO 0.4 K/mm3 (0.0-0.8); MONOCYTES PERCENT AUTO 10.8 % (0.0-8.0); NEUTROPHILS ABSOLUTE AUTO 2.6 K/mm3 (1.8-7.7); NEUTROPHILS PERCENT AUTO 62.7 % (41.0-71.0); PLATELET COUNT,PLT 136 K/mm3 (150-400); RED BLOOD CELL COUNT 4.01 M/mm3 (4.10-5.30); WHITE BLOOD CELL COUNT,WBC 4.07 K/mm3 (3.9-11.3)
[2024-03-03 22:02] LABS: INR 1.01; PROTHROMBIN TIME 10.7 SECONDS (9.7-12.0)
[2024-03-03 22:17] LABS: A/G RATIO 0.9 (1-2); ALBUMIN 3.4 g/dl (3.4-5.0); BILIRUBIN TOTAL 0.3 mg/dL (0.2-1.0); BUN/CREATININE RATIO 12.7 (14-18); CALCIUM 8.6 mg/dL (8.5-10.1); CREATININE 1.1 mg/dL (0.55-1.02); EST CRCL DRUG DOSING (CG) 34.05 mL/min
[2024-03-03] MEDS ORDERED: Iopamidol 755 Mg/ML 100 ML Bottle IVPUSH ONE (22:45)
[2024-03-03] MEDS: Pantoprazole 40 MG Vial IVPUSH ONE (23:26)
[2024-03-03] MEDS: Pantoprazole 80 MG in Sodium Chloride 0.9% 100 ML IV SCH (23:26)
[2024-03-03] MEDS: Sodium Chloride 0.9% 10 ML Syringe FLUSH PRN ×2 (23:26)
[2024-03-04 00:59] LABS: BASOPHILS PERCENT AUTO 0.7 % (0.0-1.0); EOSINOPHILS ABSOLUTE AUTO 0.2 K/mm3 (0.0-0.4); EOSINOPHILS PERCENT AUTO 7.2 % (0.0-6.0); HEMATOCRIT 27.5 % (37.0-47.0); HEMOGLOBIN 8.2 gm/dl (12.0-16.0); LYMPHOCYTES ABSOLUTE AUTO 0.8 K/mm3 (1.0-4.8); LYMPHOCYTES PERCENT AUTO 26.7 % (24.0-44.0); MEAN CORPUSCULAR HEMOGLOBIN 23.5 pg (28.0-32.0); MEAN CORPUSCULAR HGB CONC 29.8 g/dl (32.0-36.0); MEAN CORPUSCULAR VOLUME 78.8 fl (83.0-99.0); MEAN PLATELET VOLUME 11.2 fl (9.4-12.3); MONOCYTES ABSOLUTE AUTO 0.3 K/mm3 (0.0-0.8); MONOCYTES PERCENT AUTO 10.3 % (0.0-8.0); NEUTROPHILS ABSOLUTE AUTO 1.6 K/mm3 (1.8-7.7); NEUTROPHILS PERCENT AUTO 55.1 % (41.0-71.0); PLATELET COUNT,PLT 107 K/mm3 (150-400); RED BLOOD CELL COUNT 3.49 M/mm3 (4.10-5.30); WHITE BLOOD CELL COUNT,WBC 2.92 K/mm3 (3.9-11.3)
[2024-03-04 05:22] LABS: BASOPHILS PERCENT AUTO 0.9 % (0.0-1.0); EOSINOPHILS ABSOLUTE AUTO 0.2 K/mm3 (0.0-0.4); EOSINOPHILS PERCENT AUTO 6.1 % (0.0-6.0); HEMOGLOBIN 8.4 gm/dl (12.0-16.0); IMMATURE GRAN ABSOLUTE AUTO 0.02 K/mm3 (0.00-0.05); IMMATURE GRAN PERCENT AUTO 0.6 % (0.0-0.4); LYMPHOCYTES ABSOLUTE AUTO 0.8 K/mm3 (1.0-4.8); LYMPHOCYTES PERCENT AUTO 24.2 % (24.0-44.0); MEAN CORPUSCULAR HEMOGLOBIN 23.6 pg (28.0-32.0); MEAN CORPUSCULAR VOLUME 78.7 fl (83.0-99.0); MEAN PLATELET VOLUME 11.8 fl (9.4-12.3); MONOCYTES ABSOLUTE AUTO 0.4 K/mm3 (0.0-0.8); MONOCYTES PERCENT AUTO 10.8 % (0.0-8.0); NEUTROPHILS PERCENT AUTO 57.4 % (41.0-71.0); PLATELET COUNT,PLT 124 K/mm3 (150-400); RED BLOOD CELL COUNT 3.56 M/mm3 (4.10-5.30); WHITE BLOOD CELL COUNT,WBC 3.43 K/mm3 (3.9-11.3)
[2024-03-04] MEDS: Acetaminophen 325 MG Tab PO ONE (06:31)
[2024-03-04 06:46] VITALS: PULSE 70
[2024-03-04] MEDS: Morphine 4 MG/ML Syringe IVPUSH ONE ×2 (06:54→08:18)
[2024-03-04 07:01] VITALS: BP 137/64
[2024-03-04] MEDS: Ondansetron 4 MG/2 ML SDV IVPUSH ONE (08:18)
== END 2024-03-04 09:25 ==
LOC: JD.ED 21:10
DX: K92.1 Melena (principal); I10 Essential (primary) hypertension; E03.9 Hypothyroidism, unspecified; Z90.49 Acquired absence of other specified parts of digestive tract; Z79.899 Other long term (current) drug therapy; Z79.890 Hormone replacement therapy; Z79.51 Long term (current) use of inhaled steroids; Z88.5 Allergy status to narcotic agent; Z88.2 Allergy status to sulfonamides; Z88.6 Allergy status to analgesic agent; Z88.1 Allergy status to other antibiotic agents; Z88.8 Allergy status to other drugs, medicaments and biological substances
CPT/HCPCS: 36415; 36430; 74177; 80053; 83605; 83880; 85025; 85610; 85730; 86850; 86900; 86901; 86922; 96365; 96366; 96375; 96376; 99285; A9270; J2270; J2405; J2470; J3490; P9016

== ENCOUNTER 2024-05-12 15:22 | Emergency (ER) | payer MEDICARE, OTHER ==
[2024-05-12] MEDS: Ketorolac 30 MG/ML SDV IVPUSH ONE (16:38)
[2024-05-12] MEDS: diphenhydrAMINE 50 MG/ML SDV IVPUSH ONE (16:38)
[2024-05-12] MEDS: Metoclopramide 10 MG/2 ML SDV IVPUSH ONE (16:38)
[2024-05-12] MEDS: Sodium Chloride 0.9% 10 ML Syringe FLUSH PRN (16:39)
[2024-05-12] MEDS: Labetalol 100 MG/20 ML MDV IVPUSH ONE (16:40)
[2024-05-12 17:26] LABS: EOSINOPHILS ABSOLUTE AUTO 0.1 K/mm3 (0.0-0.4); EOSINOPHILS PERCENT AUTO 1.5 % (0.0-6.0); HEMATOCRIT 37.2 % (37.0-47.0); IMMATURE GRAN ABSOLUTE AUTO 0.02 K/mm3 (0.00-0.05); IMMATURE GRAN PERCENT AUTO 0.5 % (0.0-0.4); LYMPHOCYTES ABSOLUTE AUTO 0.4 K/mm3 (1.0-4.8); LYMPHOCYTES PERCENT AUTO 10.4 % (24.0-44.0); MEAN CORPUSCULAR HEMOGLOBIN 25.1 pg (28.0-32.0); MEAN CORPUSCULAR HGB CONC 29.6 g/dl (32.0-36.0); MEAN CORPUSCULAR VOLUME 84.9 fl (83.0-99.0); MONOCYTES ABSOLUTE AUTO 0.2 K/mm3 (0.0-0.8); MONOCYTES PERCENT AUTO 5.3 % (0.0-8.0); NEUTROPHILS ABSOLUTE AUTO 3.3 K/mm3 (1.8-7.7); NEUTROPHILS PERCENT AUTO 82.3 % (41.0-71.0); PLATELET COUNT,PLT 88 K/mm3 (150-400); RED BLOOD CELL COUNT 4.38 M/mm3 (4.10-5.30); WHITE BLOOD CELL COUNT,WBC 3.95 K/mm3 (3.9-11.3)
[2024-05-12] MEDS: fentaNYL 100 MCG/2 ML SDV IVPUSH ONE ×2 (17:36→19:12)
[2024-05-12 18:04] LABS: A/G RATIO 0.5 (1-2); BILIRUBIN TOTAL 0.4 mg/dL (0.2-1.0); BUN/CREATININE RATIO 8.6 (14-18); CALCIUM 8.1 mg/dL (8.5-10.1); CREATININE 0.7 mg/dL (0.55-1.02); EST CRCL DRUG DOSING (CG) 52.18 mL/min; MAGNESIUM 1.8 mg/dL (1.8-2.4); PROTEIN TOTAL,TP 9.2 g/dl (6.4-8.2)
[2024-05-12 19:03] VITALS: BP 123/56; PULSE 68
== END 2024-05-12 19:15 | disposition home or self-care (01) ==
LOC: JD.ED 15:22
DX: I10 Essential (primary) hypertension (principal); R51.9 Headache, unspecified; K21.9 Gastro-esophageal reflux disease without esophagitis; E03.9 Hypothyroidism, unspecified; Z90.49 Acquired absence of other specified parts of digestive tract; Z88.1 Allergy status to other antibiotic agents; Z88.5 Allergy status to narcotic agent; Z88.2 Allergy status to sulfonamides; Z88.8 Allergy status to other drugs, medicaments and biological substances; Z79.52 Long term (current) use of systemic steroids; Z79.890 Hormone replacement therapy; Z79.899 Other long term (current) drug therapy
CPT/HCPCS: 36415; 70450; 80053; 83735; 84484; 85025; 93005; 96374; 96375; 96376; 99284; J1200; J1885; J1920; J2765; J3010

== ENCOUNTER 2024-05-30 10:27 | Day surgery (SDC) | payer MEDICARE, OTHER ==
[~2024-05-30 10:27] MED LIST changes: -Lactated Ringers 1,000 ML IV SCH; -Lidocaine 1% 4 ML ONE; -Propofol 200 MG/20 ML SDV ONE; -ePHEDrine 50 MG/ML SDV ONE
[2024-05-30] MEDS ORDERED: fentaNYL 100 MCG/2 ML SDV ONE ×2 (10:31→12:25)
[2024-05-30] MEDS ORDERED: Propofol 200 MG/20 ML SDV ONE (10:31)
[2024-05-30 11:11] LABS: BASOPHILS ABSOLUTE AUTO 0.1 K/mm3 (0.0-0.2); BASOPHILS PERCENT AUTO 1.5 % (0.0-1.0); EOSINOPHILS ABSOLUTE AUTO 0.2 K/mm3 (0.0-0.4); EOSINOPHILS PERCENT AUTO 3.7 % (0.0-6.0); HEMATOCRIT 41.3 % (37.0-47.0); HEMOGLOBIN 12.8 gm/dl (12.0-16.0); IMMATURE GRAN ABSOLUTE AUTO 0.02 K/mm3 (0.00-0.05); IMMATURE GRAN PERCENT AUTO 0.4 % (0.0-0.4); LYMPHOCYTES ABSOLUTE AUTO 0.7 K/mm3 (1.0-4.8); LYMPHOCYTES PERCENT AUTO 16.2 % (24.0-44.0); MEAN CORPUSCULAR HEMOGLOBIN 26.1 pg (28.0-32.0); MEAN CORPUSCULAR VOLUME 84.3 fl (83.0-99.0); MONOCYTES ABSOLUTE AUTO 0.5 K/mm3 (0.0-0.8); MONOCYTES PERCENT AUTO 10.5 % (0.0-8.0); NEUTROPHILS ABSOLUTE AUTO 3.1 K/mm3 (1.8-7.7); NEUTROPHILS PERCENT AUTO 67.7 % (41.0-71.0); PLATELET COUNT,PLT 98 K/mm3 (150-400); WHITE BLOOD CELL COUNT,WBC 4.58 K/mm3 (3.9-11.3)
[2024-05-30 11:32] LABS: A/G RATIO 0.9 (1-2); ALBUMIN 3.5 g/dl (3.4-5.0); ANION GAP 10.1 (5-15); BILIRUBIN TOTAL 0.6 mg/dL (0.2-1.0); BUN/CREATININE RATIO 6.7 (14-18); CALCIUM 8.3 mg/dL (8.5-10.1); CREATININE 0.9 mg/dL (0.55-1.02); EST CRCL DRUG DOSING (CG) 44.69 mL/min; POTASSIUM,K 3.1 mEq/L (3.5-5.1); PROTEIN TOTAL,TP 7.5 g/dl (6.4-8.2)
[2024-05-30] MEDS: Lactated Ringers 1,000 ML IV SCH ×2 (12:00→18:45)
[2024-05-30] MEDS ORDERED: Rocuronium 50 MG/5 ML Vial ONE (12:11)
[2024-05-30] MEDS ORDERED: Sugammadex Sodium 200 MG/2 ML VIAL IV ONE (12:12)
[2024-05-30] MEDS ORDERED: Ondansetron 4 MG/2 ML SDV ONE (12:12)
[2024-05-30] MEDS ORDERED: ePHEDrine 50 MG/ML SDV ONE (12:12)
[2024-05-30] MEDS: EPINEPHrine 1 MG/ML SDV ONE (13:15)
[2024-05-30] MEDS: Bupivacaine 0.5% 30 ML SDV ONE (13:15)
[2024-05-30] MEDS ORDERED: ceFAZolin 2 GM Vial ONE (13:15)
[2024-05-30] MEDS ORDERED: Lactated Ringers 1,000 ML IV ONE (13:45)
[2024-05-30 14:08] LABS: SLIDE REVIEW ABNORMAL SMEAR
[2024-05-30] MEDS ORDERED: fentaNYL 100 MCG/2 ML SDV IVPUSH PRN (14:24)
[2024-05-30] MEDS: Ondansetron 4 MG/2 ML SDV IVPUSH PRN ×2 (14:57→18:58)
[2024-05-30] MEDS: Famotidine 20 MG/2 ML SDV IVPUSH ONE (15:43)
[2024-05-30] MEDS: Metoclopramide 10 MG/2 ML SDV IVPUSH ONE (16:15)
[2024-05-30] MEDS: Acetaminophen 325 MG Tab PO ONE (17:40)
[2024-05-30] MEDS ORDERED: Gabapentin 600 MG Tab PO SCH (21:00)
[2024-05-30] MEDS: Gabapentin 600 MG Tab PO SCH (21:23)
[2024-05-30] MEDS: Montelukast 10 MG Tab PO SCH (21:23)
[2024-05-30] MEDS: Famotidine 20 MG Tab PO SCH (21:23)
[2024-05-30] MEDS: Acetaminophen 325 MG Tab PO PRN (23:39)
[2024-05-31] MEDS: Morphine 2 MG/ML SYRINGE IVPUSH PRN (00:32)
[2024-05-31 04:30] VITALS: PULSE 69
[2024-05-31 09:45] VITALS: BP 147/66
== END 2024-05-31 11:45 | disposition home or self-care (01) ==
LOC: JD.SDS 10:27
PROVIDERS: ATTEND Surgery
DX: K80.64 Calculus of gallbladder and bile duct with chronic cholecystitis without obstruction (principal); F32.A Depression, unspecified; K21.9 Gastro-esophageal reflux disease without esophagitis; I10 Essential (primary) hypertension; E03.9 Hypothyroidism, unspecified; Z79.890 Hormone replacement therapy; Z79.899 Other long term (current) drug therapy; Z88.2 Allergy status to sulfonamides
CPT/HCPCS: 00790; 36415; 47562; 80053; 85025; 88304; 99100; A9270-GY; J0171; J0665; J0690; J2270; J2405; J2704; J2765; J3010; J3490; J7120

== ENCOUNTER 2024-06-16 11:41 | Emergency (ER) | payer MEDICARE, OTHER ==
[2024-06-16 13:00] LABS: BASOPHILS PERCENT AUTO 0.6 % (0.0-1.0); EOSINOPHILS ABSOLUTE AUTO 0.1 K/mm3 (0.0-0.4); EOSINOPHILS PERCENT AUTO 1.7 % (0.0-6.0); HEMATOCRIT 39.8 % (37.0-47.0); HEMOGLOBIN 12.6 gm/dl (12.0-16.0); IMMATURE GRAN ABSOLUTE AUTO 0.03 K/mm3 (0.00-0.05); IMMATURE GRAN PERCENT AUTO 0.5 % (0.0-0.4); LYMPHOCYTES ABSOLUTE AUTO 1.2 K/mm3 (1.0-4.8); LYMPHOCYTES PERCENT AUTO 18.7 % (24.0-44.0); MEAN CORPUSCULAR HEMOGLOBIN 27.3 pg (28.0-32.0); MEAN CORPUSCULAR HGB CONC 31.7 g/dl (32.0-36.0); MEAN CORPUSCULAR VOLUME 86.3 fl (83.0-99.0); MEAN PLATELET VOLUME 11.5 fl (9.4-12.3); MONOCYTES ABSOLUTE AUTO 0.8 K/mm3 (0.0-0.8); MONOCYTES PERCENT AUTO 12.5 % (0.0-8.0); NEUTROPHILS ABSOLUTE AUTO 4.4 K/mm3 (1.8-7.7); PLATELET COUNT,PLT 110 K/mm3 (150-400); RED BLOOD CELL COUNT 4.61 M/mm3 (4.10-5.30); WHITE BLOOD CELL COUNT,WBC 6.58 K/mm3 (3.9-11.3)
[2024-06-16] MEDS: Iopamidol 612 MG/ML 100 ML Bottle IVPUSH ONE (13:07)
[2024-06-16] MEDS: Sodium Chloride 0.9% 10 ML Syringe FLUSH ONE (13:07)
[2024-06-16 13:15] LABS: INR 1.01; PROTHROMBIN TIME 10.7 SECONDS (9.7-12.0)
[2024-06-16 13:16] LABS: PTT,PARTIAL THROMBOPLSTIN TIME 21.2 SECONDS (21.7-31.4)
[2024-06-16] MEDS: Sodium Chloride 0.9% 1,000 ML IV SCH (13:35)
[2024-06-16] MEDS: Metoclopramide 10 MG/2 ML SDV IVPUSH ONE (13:36)
[2024-06-16] MEDS: Morphine 2 MG/ML SYRINGE IVPUSH ONE ×2 (13:36→16:45)
[2024-06-16] MEDS: Pantoprazole 40 MG Vial IVPUSH ONE (13:36)
[2024-06-16] MEDS: Sodium Chloride 0.9% 10 ML Syringe FLUSH PRN (13:37)
[2024-06-16 13:40] LABS: A/G RATIO 0.9 (1-2); ALBUMIN 3.2 g/dl (3.4-5.0); ANION GAP 13.7 (5-15); BILIRUBIN TOTAL 0.6 mg/dL (0.2-1.0); BUN/CREATININE RATIO 15.7 (14-18); CALCIUM 8.3 mg/dL (8.5-10.1); CREATININE 0.7 mg/dL (0.55-1.02); EST CRCL DRUG DOSING (CG) 52.18 mL/min; PROTEIN TOTAL,TP 6.7 g/dl (6.4-8.2)
[2024-06-16 13:46] LABS: POTASSIUM,K 3.7 mEq/L (3.5-5.1)
[2024-06-16] MEDS: Ketorolac 15 MG/ML SDV IVPUSH ONE (16:44)
[2024-06-16 19:01] VITALS: BP 121/89; PULSE 57
== END 2024-06-16 18:25 | disposition home or self-care (01) ==
LOC: JD.ED 11:41
DX: R19.7 Diarrhea, unspecified (principal); R51.9 Headache, unspecified; I10 Essential (primary) hypertension; K21.9 Gastro-esophageal reflux disease without esophagitis; E03.9 Hypothyroidism, unspecified; Z90.49 Acquired absence of other specified parts of digestive tract; Z88.5 Allergy status to narcotic agent; Z88.2 Allergy status to sulfonamides; Z88.8 Allergy status to other drugs, medicaments and biological substances; Z79.890 Hormone replacement therapy; Z79.899 Other long term (current) drug therapy
CPT/HCPCS: 36415; 74177; 74177-26; 80053; 82272; 83690; 85025; 85610; 85730; 87045; 87046; 87328; 87329; 87493; 87899; 96361; 96374; 96375; 96376; 99284; 99284-25; J1885; J2270; J2470; J2765; J7030; Q9967

== ENCOUNTER 2024-09-11 19:13 | Emergency (ER) | payer MEDICARE, OTHER ==
[2024-09-11 20:02] LABS: BASOPHILS ABSOLUTE AUTO 0.1 K/mm3 (0.0-0.2); BASOPHILS PERCENT AUTO 0.2 % (0.0-1.0); EOSINOPHILS ABSOLUTE AUTO 0.1 K/mm3 (0.0-0.4); EOSINOPHILS PERCENT AUTO 0.6 % (0.0-6.0); HEMOGLOBIN 10.3 gm/dl (12.0-16.0); IMMATURE GRAN ABSOLUTE AUTO 0.16 K/mm3 (0.00-0.05); IMMATURE GRAN PERCENT AUTO 0.7 % (0.0-0.4); LYMPHOCYTES ABSOLUTE AUTO 0.7 K/mm3 (1.0-4.8); LYMPHOCYTES PERCENT AUTO 3.1 % (24.0-44.0); MEAN CORPUSCULAR HEMOGLOBIN 30.2 pg (28.0-32.0); MEAN CORPUSCULAR HGB CONC 33.2 g/dl (32.0-36.0); MEAN CORPUSCULAR VOLUME 90.9 fl (83.0-99.0); MEAN PLATELET VOLUME 10.8 fl (9.4-12.3); MONOCYTES ABSOLUTE AUTO 1.1 K/mm3 (0.0-0.8); MONOCYTES PERCENT AUTO 4.7 % (0.0-8.0); NEUTROPHILS ABSOLUTE AUTO 20.8 K/mm3 (1.8-7.7); NEUTROPHILS PERCENT AUTO 90.7 % (41.0-71.0); NRBC ABSOLUTE 0.04 (0.00-0.02); NRBC PERCENT 0.2 % (0.0-0.2); PLATELET COUNT,PLT 223 K/mm3 (150-400); RED BLOOD CELL COUNT 3.41 M/mm3 (4.10-5.30); WHITE BLOOD CELL COUNT,WBC 22.86 K/mm3 (3.9-11.3)
[2024-09-11 20:29] LABS: A/G RATIO 0.5 (1-2); ALBUMIN 1.8 g/dl (3.4-5.0); ANION GAP 11.5 (5-15); BILIRUBIN TOTAL 0.5 mg/dL (0.2-1.0); BUN/CREATININE RATIO 10.7 (14-18); CALCIUM 8.5 mg/dL (8.5-10.1); CREATININE 1.5 mg/dL (0.55-1.02); EST CRCL DRUG DOSING (CG) 23.99 mL/min; PROTEIN TOTAL,TP 5.8 g/dl (6.4-8.2)
[2024-09-11 20:40] LABS: POTASSIUM,K 2.5 mEq/L (3.5-5.1)
[2024-09-11] MEDS: Sodium Chloride 0.9% 500 ML IV ONE (21:20)
[2024-09-11] MEDS: Potassium Chloride 10 MEQ in Premix Bag 1 BAG IV SCH (21:21)
[2024-09-11] MEDS: Clindamycin Phosphate in D5W 600 MG in Premix Bag 1 BAG IV ONE (21:28)
[2024-09-11] MEDS: Iopamidol 612 MG/ML 100 ML Bottle IVPUSH ONE (22:27)
[2024-09-12] MEDS: Sodium Chloride 0.9% 1,000 ML IV SCH
[2024-09-12] MEDS: Heparin Sodium 5,000 Units/ML Vial IVPUSH ONE (00:29)
[2024-09-12] MEDS: Heparin Sodium/D5W 250 ML IV SCH (00:30)
[2024-09-12] MEDS: Sodium Chloride 0.9% 1,000 ML ONE (02:20)
[2024-09-12 04:10] VITALS: PULSE 72
[2024-09-12 04:11] VITALS: BP 118/63
== END 2024-09-12 03:30 ==
LOC: JD.ED 19:13
DX: I82.C11 Acute embolism and thrombosis of right internal jugular vein (principal); E87.6 Hypokalemia; M86.9 Osteomyelitis, unspecified; D64.9 Anemia, unspecified; R93.5 Abnormal findings on diagnostic imaging of other abdominal regions, including retroperitoneum; R94.4 Abnormal results of kidney function studies; I10 Essential (primary) hypertension; E03.9 Hypothyroidism, unspecified; Z88.1 Allergy status to other antibiotic agents; Z88.2 Allergy status to sulfonamides; Z88.8 Allergy status to other drugs, medicaments and biological substances; Z88.5 Allergy status to narcotic agent; Z79.899 Other long term (current) drug therapy; Z79.890 Hormone replacement therapy
CPT/HCPCS: 36415; 70491; 80053; 85025; 85730; 96365; 96366; 96367; 96368; 99285; J0736; J1644; J3480; J7030; Q9967

== ENCOUNTER 2024-10-18 19:20 | Emergency (ER) | payer MEDICARE, OTHER ==
[2024-10-18] MEDS: Sodium Chloride 0.9% 1,000 ML IV ONE (20:12)
[2024-10-18] MEDS: diphenhydrAMINE 50 MG/ML SDV IVPUSH ONE (20:18)
[2024-10-18 20:20] LABS: BASOPHILS PERCENT AUTO 0.4 % (0.0-1.0); EOSINOPHILS PERCENT AUTO 0.4 % (0.0-6.0); HEMATOCRIT 29.1 % (37.0-47.0); HEMOGLOBIN 8.6 gm/dl (12.0-16.0); IMMATURE GRAN ABSOLUTE AUTO 0.03 K/mm3 (0.00-0.05); IMMATURE GRAN PERCENT AUTO 0.7 % (0.0-0.4); LYMPHOCYTES ABSOLUTE AUTO 0.4 K/mm3 (1.0-4.8); LYMPHOCYTES PERCENT AUTO 8.3 % (24.0-44.0); MEAN CORPUSCULAR HEMOGLOBIN 26.4 pg (28.0-32.0); MEAN CORPUSCULAR HGB CONC 29.6 g/dl (32.0-36.0); MEAN CORPUSCULAR VOLUME 89.3 fl (83.0-99.0); MEAN PLATELET VOLUME 11.4 fl (9.4-12.3); MONOCYTES ABSOLUTE AUTO 0.3 K/mm3 (0.0-0.8); MONOCYTES PERCENT AUTO 6.8 % (0.0-8.0); NEUTROPHILS ABSOLUTE AUTO 3.8 K/mm3 (1.8-7.7); NEUTROPHILS PERCENT AUTO 83.4 % (41.0-71.0); PLATELET COUNT,PLT 173 K/mm3 (150-400); RED BLOOD CELL COUNT 3.26 M/mm3 (4.10-5.30); WHITE BLOOD CELL COUNT,WBC 4.58 K/mm3 (3.9-11.3)
[2024-10-18] MEDS: Metoclopramide 10 MG/2 ML SDV IVPUSH ONE (20:20)
[2024-10-18] MEDS: Ketorolac 15 MG/ML SDV IVPUSH ONE (20:22)
[2024-10-18 20:53] LABS: A/G RATIO 0.4 (1-2); ALBUMIN 2.4 g/dl (3.4-5.0); ANION GAP 12.4 (5-15); BILIRUBIN TOTAL 0.4 mg/dL (0.2-1.0); BUN/CREATININE RATIO 12.9 (14-18); C-REACTIVE PROTEIN 1.25 mg/dL (<0.30); CALCIUM 8.8 mg/dL (8.5-10.1); CREATININE 0.7 mg/dL (0.55-1.02); EST CRCL DRUG DOSING (CG) 51.41 mL/min; POTASSIUM,K 3.4 mEq/L (3.5-5.1); PROTEIN TOTAL,TP 8.9 g/dl (6.4-8.2)
[2024-10-18] MEDS ORDERED: Naloxone 0.4 MG/ML SDV IVPUSH PRN ×3 (21:38→23:28)
[2024-10-18] MEDS: Iopamidol 612 MG/ML 100 ML Bottle IVPUSH ONE (22:05)
[2024-10-18] MEDS: HYDROmorphone 0.5 MG/0.5 ML Syringe IVPUSH ONE (22:18)
[2024-10-18] MEDS: fentaNYL 100 MCG/2 ML SDV IVPUSH ONE ×2 (22:31→23:45)
[2024-10-18] MEDS: Pantoprazole 40 MG Vial IVPUSH ONE (22:35)
[2024-10-18] MEDS: Pantoprazole 80 MG in Sodium Chloride 0.9% 100 ML IV ONE (22:37)
[2024-10-18] MEDS: Pantoprazole 40 MG Vial ONE ×2 (22:44)
[2024-10-18] MEDS: Sodium Chloride 0.9% 100 ML ONE (23:45)
[2024-10-19] MEDS: LORazepam 2 MG/ML SDV IVPUSH ONE (01:49)
[2024-10-19 01:53] VITALS: BP 151/79; PULSE 88
[2024-10-19] MEDS: fentaNYL 100 MCG/2 ML SDV ONE (02:55)
== END 2024-10-19 02:10 ==
LOC: JD.ED 19:20
DX: K92.1 Melena (principal); I10 Essential (primary) hypertension; K21.9 Gastro-esophageal reflux disease without esophagitis; E03.9 Hypothyroidism, unspecified; Z90.49 Acquired absence of other specified parts of digestive tract; Z79.899 Other long term (current) drug therapy; Z79.890 Hormone replacement therapy; Z88.2 Allergy status to sulfonamides; Z88.5 Allergy status to narcotic agent; Z88.8 Allergy status to other drugs, medicaments and biological substances
CPT/HCPCS: 36415; 36430; 70450; 74177; 80053; 83690; 85025; 86140; 86850; 86900; 86901; 86922; 96361; 96365; 96366; 96375; 96376; 99285; J1200; J1885; J2470; J2765; J3010; J7030; P9016; Q9967; 99284

== ENCOUNTER 2024-12-05 07:45 | Emergency (ER) | payer MEDICARE, OTHER ==
[2024-12-05] MEDS ORDERED: Sodium Chloride 0.9% 10 ML Syringe FLUSH PRN (07:57)
[2024-12-05 08:45] LABS: BASOPHILS ABSOLUTE AUTO 0.0 K/mm3 (0.0-0.2); BASOPHILS PERCENT AUTO 0.5 % (0.0-1.0); EOSINOPHILS ABSOLUTE AUTO 0.1 K/mm3 (0.0-0.4); EOSINOPHILS PERCENT AUTO 3.4 % (0.0-6.0); IMMATURE GRAN ABSOLUTE AUTO 0.01 K/mm3 (0.00-0.05); IMMATURE GRAN PERCENT AUTO 0.3 % (0.0-0.4); LYMPHOCYTES ABSOLUTE AUTO 0.5 K/mm3 (1.0-4.8); LYMPHOCYTES PERCENT AUTO 12.7 % (24.0-44.0); MONOCYTES ABSOLUTE AUTO 0.5 K/mm3 (0.0-0.8); MONOCYTES PERCENT AUTO 12.4 % (0.0-8.0); NEUTROPHILS ABSOLUTE AUTO 2.7 K/mm3 (1.8-7.7); NEUTROPHILS PERCENT AUTO 70.7 % (41.0-71.0); NRBC ABSOLUTE 0.00 (0.00-0.02); NRBC PERCENT 0.0 % (0.0-0.2); PLATELET COUNT,PLT 73 K/mm3 (150-400); RED BLOOD CELL COUNT 3.92 M/mm3 (4.10-5.30); WHITE BLOOD CELL COUNT,WBC 3.78 K/mm3 (3.9-11.3)
[2024-12-05 09:09] LABS: A/G RATIO 0.6 (1-2); ALANINE AMINOTRANSFERASE,ALT 27.0 U/L (14-59); ASPARTATE AMNIOTRANSFERASE,AST 40.0 U/L (15-37); BILIRUBIN TOTAL 0.5 mg/dL (0.2-1.0); BLOOD UREA NITROGEN,BUN 27.0 mg/dL (7-18); CARBON DIOXIDE,CO2 32.0 mEq/L (21-32); CHLORIDE,CL 98.0 mEq/L (98-107); CREATININE 1.2 mg/dL (0.55-1.02); EST CRCL DRUG DOSING (CG) 29.99 mL/min; ESTIMATED GFR 48.0 mL/min (>60); GLUCOSE RANDOM 106.0 mg/dL (70-99); POTASSIUM,K 4.3 mEq/L (3.5-5.1); PROTEIN TOTAL,TP 7.5 g/dl (6.4-8.2); SODIUM,NA 136.0 mEq/L (136-145); TROPONIN I HIGH SENSITIVITY 25.0 pg/mL (<=51)
[2024-12-05 10:48] VITALS: BP 103/58; PULSE 63
== END 2024-12-05 10:20 | disposition home or self-care (01) ==
LOC: JD.ED 07:45
DX: S16.1XXA Strain of muscle, fascia and tendon at neck level, initial encounter (principal); S60.512A Abrasion of left hand, initial encounter; S80.02XA Contusion of left knee, initial encounter; S06.9X9A Unspecified intracranial injury with loss of consciousness of unspecified duration, initial encounter; I10 Essential (primary) hypertension; E03.9 Hypothyroidism, unspecified; Z88.0 Allergy status to penicillin; Z88.6 Allergy status to analgesic agent; Z88.1 Allergy status to other antibiotic agents; Z88.5 Allergy status to narcotic agent; Z88.2 Allergy status to sulfonamides; Z88.8 Allergy status to other drugs, medicaments and biological substances; Z79.899 Other long term (current) drug therapy; Z79.890 Hormone replacement therapy; W18.39XA Other fall on same level, initial encounter; Y93.89 Activity, other specified
CPT/HCPCS: 36415; 70450; 70450-26; 71045; 71045-26; 72125; 72125-26; 73564-26-LT; 73564-LT; 80053; 84484; 85025; 93005; 93010; 99284; 99285

== ENCOUNTER 2024-12-05 12:34 | Inpatient (IN) | payer MEDICARE, OTHER ==
[2024-12-05] MEDS ORDERED: Sodium Chloride 0.9% 10 ML Syringe FLUSH PRN (12:40)
[2024-12-05 16:32] LABS: CREATINE KINASE,CK 139.0 U/L (26-192); PHOSPHORUS 4.6 mg/dL (2.6-4.7); TSH 4.087 uIU/mL (0.358-3.74)
[2024-12-05 16:46] LABS: ETHANOL BLOOD MEDICAL 0.0 gm% (0.00)
[2024-12-05 17:07] LABS: T4 FREE 0.8 ng/dL (0.76-1.46)
[2024-12-05] MEDS: Magnesium Sulfate 2 GM/50 mL 2 GM in Premix Bag 1 BAG IV ONE (18:48)
[2024-12-06 00:10] LABS: BUPRENORPHINE SCREEN,URINE NEGATIVE (CUTOFF=10); METHADONE SCREEN, URINE NEGATIVE (CUTOFF=200); METHAMPHETAMINES SCREEN, URINE NEGATIVE (CUTOFF=500); OXYCODONE SCREEN,URINE PRESUMPTIVE POSITIVE (CUT0FF=100); THC SCREEN,URINE 20 NG/ML NEGATIVE (CUTOFF=50)
[2024-12-06 00:14] LABS: AMPHETAMINES SCREEN, URINE NEGATIVE (CUTOFF=500)
[2024-12-06 00:26] LABS: APPEARANCE,URINE CLEAR (Clear); GLUCOSE,URINE NEGATIVE (Negative); OCCULT BLOOD,URINE TRACE-INTACT (Negative)
[2024-12-06 00:30] LABS: APPEARANCE,URINE CLEAR (Clear); GLUCOSE,URINE NEGATIVE (Negative)
[2024-12-06 00:31] LABS: EPITHELIAL CELLS,URINE 0-5 /hpf (0-5); OCCULT BLOOD,URINE TRACE-INTACT (Negative)
[2024-12-06 00:40] LABS: EPITHELIAL CELLS,URINE 0-5 /hpf (0-5)
[2024-12-06 04:08] LABS: BASOPHILS ABSOLUTE AUTO 0.0 K/mm3 (0.0-0.2); BASOPHILS PERCENT AUTO 0.7 % (0.0-1.0); EOSINOPHILS ABSOLUTE AUTO 0.1 K/mm3 (0.0-0.4); EOSINOPHILS PERCENT AUTO 3.5 % (0.0-6.0); IMMATURE GRAN ABSOLUTE AUTO 0.01 K/mm3 (0.00-0.05); IMMATURE GRAN PERCENT AUTO 0.3 % (0.0-0.4); LYMPHOCYTES ABSOLUTE AUTO 0.8 K/mm3 (1.0-4.8); LYMPHOCYTES PERCENT AUTO 27.9 % (24.0-44.0); MEAN PLATELET VOLUME 13.0 fl (9.4-12.3); MONOCYTES ABSOLUTE AUTO 0.5 K/mm3 (0.0-0.8); MONOCYTES PERCENT AUTO 16.0 % (0.0-8.0); NEUTROPHILS ABSOLUTE AUTO 1.5 K/mm3 (1.8-7.7); NEUTROPHILS PERCENT AUTO 51.6 % (41.0-71.0); NRBC ABSOLUTE 0.00 (0.00-0.02); NRBC PERCENT 0.0 % (0.0-0.2); PLATELET COUNT,PLT 72 K/mm3 (150-400); RED BLOOD CELL COUNT 3.77 M/mm3 (4.10-5.30); WHITE BLOOD CELL COUNT,WBC 2.87 K/mm3 (3.9-11.3)
[2024-12-06 04:32] LABS: A/G RATIO 0.6 (1-2); ALANINE AMINOTRANSFERASE,ALT 25.0 U/L (14-59); ASPARTATE AMNIOTRANSFERASE,AST 41.0 U/L (15-37); BILIRUBIN TOTAL 0.4 mg/dL (0.2-1.0); BLOOD UREA NITROGEN,BUN 21.0 mg/dL (7-18); CARBON DIOXIDE,CO2 30.0 mEq/L (21-32); CHLORIDE,CL 102.0 mEq/L (98-107); CREATININE 1.1 mg/dL (0.55-1.02); EST CRCL DRUG DOSING (CG) 32.72 mL/min; ESTIMATED GFR 53.0 mL/min (>60); GLUCOSE RANDOM 79.0 mg/dL (70-99); POTASSIUM,K 3.9 mEq/L (3.5-5.1); PROTEIN TOTAL,TP 6.9 g/dl (6.4-8.2); SODIUM,NA 138.0 mEq/L (136-145)
[2024-12-06] MEDS ORDERED: Non-Formulary Medication 1 Each (Escitalopram 20 MG Tablet) PO SCH (09:00)
[2024-12-06] MEDS: Fluticasone NASAL Spray 16 GM Bottle NASBOTH SCH (20:51)
[2024-12-07 04:24] LABS: BASOPHILS ABSOLUTE AUTO 0.0 K/mm3 (0.0-0.2); BASOPHILS PERCENT AUTO 0.3 % (0.0-1.0); EOSINOPHILS ABSOLUTE AUTO 0.1 K/mm3 (0.0-0.4); EOSINOPHILS PERCENT AUTO 4.4 % (0.0-6.0); IMMATURE GRAN ABSOLUTE AUTO 0.01 K/mm3 (0.00-0.05); IMMATURE GRAN PERCENT AUTO 0.3 % (0.0-0.4); LYMPHOCYTES ABSOLUTE AUTO 0.8 K/mm3 (1.0-4.8); LYMPHOCYTES PERCENT AUTO 27.6 % (24.0-44.0); MEAN PLATELET VOLUME 12.4 fl (9.4-12.3); MONOCYTES ABSOLUTE AUTO 0.4 K/mm3 (0.0-0.8); MONOCYTES PERCENT AUTO 14.3 % (0.0-8.0); NEUTROPHILS ABSOLUTE AUTO 1.6 K/mm3 (1.8-7.7); NEUTROPHILS PERCENT AUTO 53.1 % (41.0-71.0); NRBC ABSOLUTE 0.00 (0.00-0.02); NRBC PERCENT 0.0 % (0.0-0.2); PLATELET COUNT,PLT 67 K/mm3 (150-400); RED BLOOD CELL COUNT 3.52 M/mm3 (4.10-5.30); WHITE BLOOD CELL COUNT,WBC 2.94 K/mm3 (3.9-11.3)
[2024-12-07 05:00] LABS: A/G RATIO 0.6 (1-2); ALANINE AMINOTRANSFERASE,ALT 23.0 U/L (14-59); ASPARTATE AMNIOTRANSFERASE,AST 52.0 U/L (15-37); BILIRUBIN TOTAL 0.3 mg/dL (0.2-1.0); BLOOD UREA NITROGEN,BUN 16.0 mg/dL (7-18); CARBON DIOXIDE,CO2 29.0 mEq/L (21-32); CHLORIDE,CL 105.0 mEq/L (98-107); CREATININE 0.9 mg/dL (0.55-1.02); EST CRCL DRUG DOSING (CG) 39.99 mL/min; ESTIMATED GFR 68.0 mL/min (>60); GLUCOSE RANDOM 75.0 mg/dL (70-99); POTASSIUM,K 3.7 mEq/L (3.5-5.1); PROTEIN TOTAL,TP 6.6 g/dl (6.4-8.2); SODIUM,NA 140.0 mEq/L (136-145)
[2024-12-07] MEDS: Magnesium Sulfate 2 GM/50 mL 2 GM in Premix Bag 1 BAG IV ONE (09:15)
[2024-12-07] MEDS: Cholecalciferol (Vitamin D3) 5,000 UNIT Cap PO SCH (09:18)
[2024-12-12 08:52] LABS: BASOPHILS ABSOLUTE AUTO 0.1 K/mm3 (0.0-0.2); BASOPHILS PERCENT AUTO 1.0 % (0.0-1.0); EOSINOPHILS ABSOLUTE AUTO 0.2 K/mm3 (0.0-0.4); EOSINOPHILS PERCENT AUTO 4.0 % (0.0-6.0); IMMATURE GRAN ABSOLUTE AUTO 0.02 K/mm3 (0.00-0.05); IMMATURE GRAN PERCENT AUTO 0.4 % (0.0-0.4); LYMPHOCYTES ABSOLUTE AUTO 0.8 K/mm3 (1.0-4.8); LYMPHOCYTES PERCENT AUTO 16.1 % (24.0-44.0); MEAN PLATELET VOLUME 12.9 fl (9.4-12.3); MONOCYTES ABSOLUTE AUTO 0.6 K/mm3 (0.0-0.8); MONOCYTES PERCENT AUTO 11.9 % (0.0-8.0); NEUTROPHILS ABSOLUTE AUTO 3.5 K/mm3 (1.8-7.7); NEUTROPHILS PERCENT AUTO 66.6 % (41.0-71.0); NRBC ABSOLUTE 0.00 (0.00-0.02); NRBC PERCENT 0.0 % (0.0-0.2); PLATELET COUNT,PLT 140 K/mm3 (150-400); RED BLOOD CELL COUNT 4.12 M/mm3 (4.10-5.30); WHITE BLOOD CELL COUNT,WBC 5.21 K/mm3 (3.9-11.3)
[2024-12-12 09:20] LABS: BLOOD UREA NITROGEN,BUN 34.0 mg/dL (7-18); CARBON DIOXIDE,CO2 26.0 mEq/L (21-32); CHLORIDE,CL 101.0 mEq/L (98-107); CREATININE 1.3 mg/dL (0.55-1.02); EST CRCL DRUG DOSING (CG) 27.68 mL/min; ESTIMATED GFR 43.0 mL/min (>60); GLUCOSE RANDOM 100.0 mg/dL (70-99); PHOSPHORUS 3.0 mg/dL (2.6-4.7); POTASSIUM,K 3.8 mEq/L (3.5-5.1); SODIUM,NA 138.0 mEq/L (136-145)
[2024-12-13] MEDS: methylPREDNISolone Sodium Succinate 125 MG/2 ML SDV IVPUSH SCH (12:55)
[2024-12-13 13:25] LABS: BLOOD UREA NITROGEN,BUN 31.0 mg/dL (7-18); CARBON DIOXIDE,CO2 26.0 mEq/L (21-32); CHLORIDE,CL 101.0 mEq/L (98-107); CREATINE KINASE,CK 284.0 U/L (26-192); CREATININE 1.3 mg/dL (0.55-1.02); EST CRCL DRUG DOSING (CG) 27.68 mL/min; ESTIMATED GFR 43.0 mL/min (>60); GLUCOSE RANDOM 106.0 mg/dL (70-99); POTASSIUM,K 3.7 mEq/L (3.5-5.1); SODIUM,NA 140.0 mEq/L (136-145)
[2024-12-13] MEDS: IMMUN GLOB IV SCH (15:43)
[2024-12-13] MEDS: [UNRECOGNIZED DRUG - OTHER] IV SCH (15:43)
[2024-12-13] MEDS: IGA IV SCH (15:43)
[2024-12-15 05:47] LABS: BLOOD UREA NITROGEN,BUN 38 mg/dL (7-18); CARBON DIOXIDE,CO2 27 mEq/L (21-32); CHLORIDE,CL 103 mEq/L (98-107); CREATINE KINASE,CK 66 U/L (26-192); CREATININE 1.1 mg/dL (0.55-1.02); ESTIMATED GFR 53 mL/min (>60); GLUCOSE RANDOM 136 mg/dL (70-99); POTASSIUM,K 3.6 mEq/L (3.5-5.1); SODIUM,NA 138 mEq/L (136-145)
[2024-12-15 13:36] VITALS: BP 125/65; PULSE 51
== END 2024-12-15 13:05 | DRG 545 ==
LOC: JD.ED 12:34 → JD.MS 15:08
PROVIDERS: ADMIT Family Medicine; ATTEND Student in an Organized Health Care Education/Training Program
PROC: 3E04329 Introduction of Other Anti-infective into Central Vein, Percutaneous Approach (ICD-10-PCS; principal; 2024-12-05)
PROC: 30243S1 Transfusion of Nonautologous Globulin into Central Vein, Percutaneous Approach (ICD-10-PCS; principal; 2024-12-05)
DX: S09.90XA Unspecified injury of head, initial encounter (principal); M33.20 Polymyositis, organ involvement unspecified; G93.41 Metabolic encephalopathy; T80.219A Unspecified infection due to central venous catheter, initial encounter; D83.9 Common variable immunodeficiency, unspecified; D61.818 Other pancytopenia; Z88.8 Allergy status to other drugs, medicaments and biological substances; R26.2 Difficulty in walking, not elsewhere classified; Z66 Do not resuscitate; H54.7 Unspecified visual loss; W18.39XA Other fall on same level, initial encounter; Y93.89 Activity, other specified; I10 Essential (primary) hypertension; G47.30 Sleep apnea, unspecified; K21.9 Gastro-esophageal reflux disease without esophagitis; K74.60 Unspecified cirrhosis of liver; M54.9 Dorsalgia, unspecified; G89.29 Other chronic pain; M81.0 Age-related osteoporosis without current pathological fracture; G43.909 Migraine, unspecified, not intractable, without status migrainosus; F41.9 Anxiety disorder, unspecified; F32.A Depression, unspecified; E03.9 Hypothyroidism, unspecified; D50.9 Iron deficiency anemia, unspecified; Z96.611 Presence of right artificial shoulder joint; E53.8 Deficiency of other specified B group vitamins; L98.429 Non-pressure chronic ulcer of back with unspecified severity; M27.2 Inflammatory conditions of jaws; J30.9 Allergic rhinitis, unspecified; M15.9 Polyosteoarthritis, unspecified; K27.9 Peptic ulcer, site unspecified, unspecified as acute or chronic, without hemorrhage or perforation; E86.0 Dehydration; E83.42 Hypomagnesemia; Z88.6 Allergy status to analgesic agent; Z88.2 Allergy status to sulfonamides; Z79.899 Other long term (current) drug therapy; Z88.0 Allergy status to penicillin; Z88.1 Allergy status to other antibiotic agents; Z88.5 Allergy status to narcotic agent; Z79.890 Hormone replacement therapy; Z79.51 Long term (current) use of inhaled steroids; Z85.3 Personal history of malignant neoplasm of breast; Z85.038 Personal history of other malignant neoplasm of large intestine; Z85.820 Personal history of malignant melanoma of skin; Z90.89 Acquired absence of other organs; Z98.49 Cataract extraction status, unspecified eye; Z90.49 Acquired absence of other specified parts of digestive tract; Z98.890 Other specified postprocedural states; Z98.51 Tubal ligation status; Z90.10 Acquired absence of unspecified breast and nipple; Z95.828 Presence of other vascular implants and grafts; Z86.718 Personal history of other venous thrombosis and embolism
CPT/HCPCS: 36415; 70450; 70450-26; 70551; 70551-26; 71045; 71045-26; 72125; 72125-26; 73564-26-LT; 73564-LT; 80048; 80053; 80306; 80307; 81001; 82140; 82550; 82607; 82746; 83735; 84100; 84439; 84443; 84484; 85025; 85652; 86140; 87040; 87426-QW; 93005; 93010; 96374; 97110-GO; 97110-GP; 97112-GP; 97116-GP; 97161-GP; 97166-GO; 97530-GO; 97530-GP; 97535-GO; 99221; 99231; 99283; 99284; 99285; 99285-25; A9270-GY; J1335; J1459; J1650; J2919; J3475; J7030; J7050; J7512; U0002

== ENCOUNTER 2025-03-08 16:48 | Inpatient (IN) | payer MEDICARE, OTHER ==
[2025-03-08] MEDS ORDERED: Sodium Chloride 0.9% 10 ML Syringe FLUSH PRN (17:08)
[2025-03-08 17:37] LABS: BASOPHILS ABSOLUTE AUTO 0.0 K/mm3 (0.0-0.2); BASOPHILS PERCENT AUTO 0.9 % (0.0-1.0); EOSINOPHILS ABSOLUTE AUTO 0.1 K/mm3 (0.0-0.4); EOSINOPHILS PERCENT AUTO 2.1 % (0.0-6.0); IMMATURE GRAN ABSOLUTE AUTO 0.01 K/mm3 (0.00-0.05); IMMATURE GRAN PERCENT AUTO 0.2 % (0.0-0.4); LYMPHOCYTES ABSOLUTE AUTO 0.7 K/mm3 (1.0-4.8); LYMPHOCYTES PERCENT AUTO 16.6 % (24.0-44.0); MEAN PLATELET VOLUME 12.4 fl (9.4-12.3); MONOCYTES ABSOLUTE AUTO 0.7 K/mm3 (0.0-0.8); MONOCYTES PERCENT AUTO 15.2 % (0.0-8.0); NEUTROPHILS ABSOLUTE AUTO 2.8 K/mm3 (1.8-7.7); NEUTROPHILS PERCENT AUTO 65.0 % (41.0-71.0); NRBC ABSOLUTE 0.00 (0.00-0.02); NRBC PERCENT 0.0 % (0.0-0.2); PLATELET COUNT,PLT 72 K/mm3 (150-400); RED BLOOD CELL COUNT 3.77 M/mm3 (4.10-5.30); WHITE BLOOD CELL COUNT,WBC 4.28 K/mm3 (3.9-11.3)
[2025-03-08 18:12] LABS: A/G RATIO 0.7 (1-2); ALANINE AMINOTRANSFERASE,ALT 39.0 U/L (14-59); ASPARTATE AMNIOTRANSFERASE,AST 57.0 U/L (15-37); BILIRUBIN TOTAL 0.4 mg/dL (0.2-1.0); BLOOD UREA NITROGEN,BUN 22.0 mg/dL (7-18); CARBON DIOXIDE,CO2 34.0 mEq/L (21-32); CHLORIDE,CL 102.0 mEq/L (98-107); CREATININE 1.4 mg/dL (0.55-1.02); EST CRCL DRUG DOSING (CG) 25.71 mL/min; ESTIMATED GFR 40.0 mL/min (>60); GLUCOSE RANDOM 86.0 mg/dL (70-99); POTASSIUM,K 3.4 mEq/L (3.5-5.1); PROTEIN TOTAL,TP 6.8 g/dl (6.4-8.2); SODIUM,NA 144.0 mEq/L (136-145)
[2025-03-08 18:23] LABS: LACTIC ACID 2.2 mmol/L (0.4-2.0)
[2025-03-08 18:30] LABS: APPEARANCE,URINE CLEAR (Clear); GLUCOSE,URINE NEGATIVE (Negative); OCCULT BLOOD,URINE NEGATIVE (Negative)
[2025-03-08] MEDS: Magnesium Sulfate 2 GM/50 mL 2 GM in Premix Bag 1 BAG IV SCH (18:44)
[2025-03-08] MEDS: Iopamidol 612 MG/ML 100 ML Bottle IVPUSH ONE (19:14)
[2025-03-08] MEDS: Sodium Chloride 0.9% 10 ML Syringe FLUSH ONE (19:14)
[2025-03-08] MEDS: Lactated Ringers 1,000 ML IV STA (21:15)
[2025-03-08 23:34] LABS: LACTIC ACID 1.7 mmol/L (0.4-2.0)
[2025-03-09 04:41] LABS: BASOPHILS ABSOLUTE AUTO 0.0 K/mm3 (0.0-0.2); BASOPHILS PERCENT AUTO 0.7 % (0.0-1.0); EOSINOPHILS ABSOLUTE AUTO 0.1 K/mm3 (0.0-0.4); EOSINOPHILS PERCENT AUTO 2.7 % (0.0-6.0); IMMATURE GRAN ABSOLUTE AUTO 0.01 K/mm3 (0.00-0.05); IMMATURE GRAN PERCENT AUTO 0.3 % (0.0-0.4); LYMPHOCYTES ABSOLUTE AUTO 0.7 K/mm3 (1.0-4.8); LYMPHOCYTES PERCENT AUTO 22.1 % (24.0-44.0); MONOCYTES ABSOLUTE AUTO 0.4 K/mm3 (0.0-0.8); MONOCYTES PERCENT AUTO 14.3 % (0.0-8.0); NEUTROPHILS ABSOLUTE AUTO 1.8 K/mm3 (1.8-7.7); NEUTROPHILS PERCENT AUTO 59.9 % (41.0-71.0); NRBC ABSOLUTE 0.00 (0.00-0.02); NRBC PERCENT 0.0 % (0.0-0.2); PLATELET COUNT,PLT 55 K/mm3 (150-400); RED BLOOD CELL COUNT 3.34 M/mm3 (4.10-5.30); WHITE BLOOD CELL COUNT,WBC 2.94 K/mm3 (3.9-11.3)
[2025-03-09 04:57] LABS: A/G RATIO 0.7 (1-2); ALANINE AMINOTRANSFERASE,ALT 30.0 U/L (14-59); ASPARTATE AMNIOTRANSFERASE,AST 38.0 U/L (15-37); BILIRUBIN TOTAL 0.3 mg/dL (0.2-1.0); BLOOD UREA NITROGEN,BUN 15.0 mg/dL (7-18); CARBON DIOXIDE,CO2 30.0 mEq/L (21-32); CHLORIDE,CL 106.0 mEq/L (98-107); CREATININE 1.0 mg/dL (0.55-1.02); EST CRCL DRUG DOSING (CG) 35.99 mL/min; ESTIMATED GFR 59.0 mL/min (>60); GLUCOSE RANDOM 90.0 mg/dL (70-99); POTASSIUM,K 2.9 mEq/L (3.5-5.1); PROTEIN TOTAL,TP 5.9 g/dl (6.4-8.2); SODIUM,NA 146.0 mEq/L (136-145)
[2025-03-09] MEDS ORDERED: Ondansetron 4 MG/2 ML SDV IV PRN (08:46)
[2025-03-09] MEDS: Nystatin Susp 100,000 Unit/ML 5 ML UD Cup PO SCH (08:57)
[2025-03-09] MEDS: Potassium Chloride 20 MEQ Tab.ER PO SCH (08:58)
[2025-03-09] MEDS ORDERED: CYCLOSPORINE EYEBOTH SCH (09:00)
[2025-03-09] MEDS: Fluticasone NASAL Spray 16 GM Bottle NASBOTH SCH (21:52)
[2025-03-10 06:00] LABS: BASOPHILS ABSOLUTE AUTO 0.0 K/mm3 (0.0-0.2); BASOPHILS PERCENT AUTO 1.3 % (0.0-1.0); EOSINOPHILS ABSOLUTE AUTO 0.2 K/mm3 (0.0-0.4); EOSINOPHILS PERCENT AUTO 5.0 % (0.0-6.0); IMMATURE GRAN ABSOLUTE AUTO 0.00 K/mm3 (0.00-0.05); IMMATURE GRAN PERCENT AUTO 0.0 % (0.0-0.4); LYMPHOCYTES ABSOLUTE AUTO 0.8 K/mm3 (1.0-4.8); LYMPHOCYTES PERCENT AUTO 26.8 % (24.0-44.0); MONOCYTES ABSOLUTE AUTO 0.4 K/mm3 (0.0-0.8); MONOCYTES PERCENT AUTO 13.4 % (0.0-8.0); NEUTROPHILS ABSOLUTE AUTO 1.6 K/mm3 (1.8-7.7); NEUTROPHILS PERCENT AUTO 53.5 % (41.0-71.0); NRBC ABSOLUTE 0.00 (0.00-0.02); NRBC PERCENT 0.0 % (0.0-0.2); PLATELET COUNT,PLT 55 K/mm3 (150-400); RED BLOOD CELL COUNT 3.35 M/mm3 (4.10-5.30); WHITE BLOOD CELL COUNT,WBC 2.99 K/mm3 (3.9-11.3)
[2025-03-10 06:28] LABS: A/G RATIO 0.7 (1-2); ALANINE AMINOTRANSFERASE,ALT 30.0 U/L (14-59); ASPARTATE AMNIOTRANSFERASE,AST 42.0 U/L (15-37); BILIRUBIN TOTAL 0.3 mg/dL (0.2-1.0); BLOOD UREA NITROGEN,BUN 9.0 mg/dL (7-18); CARBON DIOXIDE,CO2 30.0 mEq/L (21-32); CHLORIDE,CL 106.0 mEq/L (98-107); CREATININE 1.0 mg/dL (0.55-1.02); EST CRCL DRUG DOSING (CG) 35.99 mL/min; ESTIMATED GFR 59.0 mL/min (>60); GLUCOSE RANDOM 93.0 mg/dL (70-99); POTASSIUM,K 4.0 mEq/L (3.5-5.1); PROTEIN TOTAL,TP 5.8 g/dl (6.4-8.2); SODIUM,NA 142.0 mEq/L (136-145)
[2025-03-10] MEDS: Magnesium Sulf/Wat 4 GM/50 mL 4 GM in Premix Bag 1 BAG IV ONE (11:47)
[2025-03-10] MEDS ORDERED: COLESTIPOL PO SCH (21:00)
[2025-03-11 05:41] LABS: BASOPHILS ABSOLUTE AUTO 0.0 K/mm3 (0.0-0.2); BASOPHILS PERCENT AUTO 1.0 % (0.0-1.0); EOSINOPHILS ABSOLUTE AUTO 0.2 K/mm3 (0.0-0.4); EOSINOPHILS PERCENT AUTO 5.8 % (0.0-6.0); IMMATURE GRAN ABSOLUTE AUTO 0.01 K/mm3 (0.00-0.05); IMMATURE GRAN PERCENT AUTO 0.3 % (0.0-0.4); LYMPHOCYTES ABSOLUTE AUTO 0.8 K/mm3 (1.0-4.8); LYMPHOCYTES PERCENT AUTO 26.2 % (24.0-44.0); MEAN PLATELET VOLUME 13.1 fl (9.4-12.3); MONOCYTES ABSOLUTE AUTO 0.4 K/mm3 (0.0-0.8); MONOCYTES PERCENT AUTO 14.1 % (0.0-8.0); NEUTROPHILS ABSOLUTE AUTO 1.7 K/mm3 (1.8-7.7); NEUTROPHILS PERCENT AUTO 52.6 % (41.0-71.0); NRBC ABSOLUTE 0.00 (0.00-0.02); NRBC PERCENT 0.0 % (0.0-0.2); PLATELET COUNT,PLT 62 K/mm3 (150-400); RED BLOOD CELL COUNT 3.35 M/mm3 (4.10-5.30); WHITE BLOOD CELL COUNT,WBC 3.13 K/mm3 (3.9-11.3)
[2025-03-11 06:06] LABS: A/G RATIO 0.7 (1-2); ALANINE AMINOTRANSFERASE,ALT 30.0 U/L (14-59); ASPARTATE AMNIOTRANSFERASE,AST 43.0 U/L (15-37); BILIRUBIN TOTAL 0.2 mg/dL (0.2-1.0); BLOOD UREA NITROGEN,BUN 9.0 mg/dL (7-18); CARBON DIOXIDE,CO2 29.0 mEq/L (21-32); CHLORIDE,CL 108.0 mEq/L (98-107); CREATININE 1.1 mg/dL (0.55-1.02); EST CRCL DRUG DOSING (CG) 32.72 mL/min; ESTIMATED GFR 53.0 mL/min (>60); GLUCOSE RANDOM 93.0 mg/dL (70-99); POTASSIUM,K 3.9 mEq/L (3.5-5.1); PROTEIN TOTAL,TP 5.8 g/dl (6.4-8.2); SODIUM,NA 143.0 mEq/L (136-145)
[2025-03-11 14:48] VITALS: BP 116/74; PULSE 66
[2025-03-13 10:48] LABS: CALPROTECTIN,FECAL 2000 ug/g (<=49)
== END 2025-03-11 14:45 | disposition home or self-care (01) | DRG 392 ==
LOC: JD.ED 16:48 → JD.MS 20:51
PROVIDERS: ADMIT Family Medicine; ATTEND Family Medicine
DX: K52.9 Noninfective gastroenteritis and colitis, unspecified (principal); N17.9 Acute kidney failure, unspecified; E87.20 Acidosis, unspecified; Z66 Do not resuscitate; K21.9 Gastro-esophageal reflux disease without esophagitis; Z88.0 Allergy status to penicillin; I10 Essential (primary) hypertension; G47.30 Sleep apnea, unspecified; Z79.890 Hormone replacement therapy; G89.29 Other chronic pain; M54.9 Dorsalgia, unspecified; J30.2 Other seasonal allergic rhinitis; H54.7 Unspecified visual loss; G43.909 Migraine, unspecified, not intractable, without status migrainosus; F41.9 Anxiety disorder, unspecified; F32.A Depression, unspecified; E03.9 Hypothyroidism, unspecified; Z96.619 Presence of unspecified artificial shoulder joint; E83.42 Hypomagnesemia; K74.60 Unspecified cirrhosis of liver; E86.0 Dehydration; M27.2 Inflammatory conditions of jaws; D64.9 Anemia, unspecified; D69.6 Thrombocytopenia, unspecified; Z88.6 Allergy status to analgesic agent; Z88.1 Allergy status to other antibiotic agents; Z88.5 Allergy status to narcotic agent; Z88.8 Allergy status to other drugs, medicaments and biological substances; Z88.2 Allergy status to sulfonamides; Z79.899 Other long term (current) drug therapy; Z79.1 Long term (current) use of non-steroidal anti-inflammatories (NSAID); Z79.891 Long term (current) use of opiate analgesic; Z98.49 Cataract extraction status, unspecified eye; Z98.890 Other specified postprocedural states; Z85.3 Personal history of malignant neoplasm of breast; Z85.038 Personal history of other malignant neoplasm of large intestine; Z90.89 Acquired absence of other organs; Z90.49 Acquired absence of other specified parts of digestive tract; Z98.891 History of uterine scar from previous surgery; Z98.51 Tubal ligation status
CPT/HCPCS: 36415; 51701; 74177; 80053; 81003; 82140; 83605 ×2; 83690; 83735; 83880; 85025; 86140; 87428; 96361; 96365; 96366; 99285; C1758; J3475; J7030 ×3; Q9967; 83630; 84100; 84132; 87045; 87046; 87493; 87899; 97112-GP; 97116-GP; 97162-GP; A9270-GY; J1650; J3480; J7070; J7120